=== PATIENT | female | born 1980 | race Two or more races ===

== ENCOUNTER → 2018-04-15 11:24 | Outpatient (CLI) | payer OTHER, SELFPAY ==
[2018-04-18 09:33] LABS: HPV Reflexed? NOT INDICATED
== END ==
PROVIDERS: Visit Provider Obstetrics & Gynecology
DX: Z12.4 Encounter for screening for malignant neoplasm of cervix (principal)
CPT/HCPCS: 88175; G0145

== ENCOUNTER → 2018-04-16 13:35 | Outpatient (CLI) | payer OTHER, SELFPAY ==
--- NOTE | 2018-04-16 13:45 | RAD_ITS ---
STUDY: HYSTEROSALPINGOGRAM. REASON FOR EXAM: Female, 37 years old. Infertility. 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 Imaging was provided. COMPARISON: None. FINDINGS: The uterus is unremarkable. The fallopian tubes are patent bilaterally with free spill. RAD/Salpingogram IMPRESSION: Normal hysterosalpingogram. Electronically Signed: Ramón Xiong MD at 14:45 EDT Tel [phone], Service support ,
--- NOTE | 2018-04-16 14:21 | PCM.OP.BLANK ---
Operative Report Date of Procedure: 04/16/18 - HSG 37 yo G0 female with 2 yr h/o infertility for hysterosalpingogram. Relates took 1000 mg Ibuprofen prior to procedure. Pt to dorsal supine position with knees bent on X ray table. Speculum inserted and cervix brought into view. Cervix cleansed with Betadine. Os finder used to probe cervix, but unable to pass internal os. Single toothed tenaculum applied to anterior lip of cervix and os finder then used to probe cervix. Os finder inserted to fundus. HSG catheter then inserted through cervix and balloon inflated. Tenaculum removed from cervix and excellent hemostasis noted. Patient kept covered. Dr. Xiong in to room. Contrast inserted into the uterus and uterine cavity filled. Bilateral fallopian tubes imaged and spill noted from distal end of each tube. Images collected during procedure. Procedure concluded. Balloon deflated and HSG catheter removed. Graves speculum removed. Pt returned to dorsal supine position after tolerating procedure well.
== END ==
PROVIDERS: Family Provider Family Medicine; PCP Family Medicine; Visit Provider Obstetrics & Gynecology
DX: Z31.41 Encounter for fertility testing (principal)
CPT/HCPCS: 58340; 74740

== ENCOUNTER → 2018-07-15 08:39 | Outpatient (CLI) | payer OTHER, SELFPAY ==
[2018-07-16 08:27] LABS: Progesterone Level 12.09 ng/mL (See Comment)
== END ==
PROVIDERS: Visit Provider Obstetrics & Gynecology
DX: N97.0 Female infertility associated with anovulation (principal); Z51.81 Encounter for therapeutic drug level monitoring
CPT/HCPCS: 36415; 84144

== ENCOUNTER → 2018-10-27 16:21 | Outpatient (CLI) | payer OTHER, SELFPAY ==
[2018-10-27 17:45] LABS: Progesterone Level 36.78 ng/mL (See Comment)
--- OUTSIDE RECORDS SUMMARY | 2018-12-09 15:48 | XMS RPT_ITS ---
:1980 Author Organization [facility] Care Team Providers Name Role Phone [facility]UPENDRAGULSHANMARY ([facility]) Referring Unavailable JOSUE ARENAS Referring Unavailable LEYT CRUMP Attending Unavailable JOSUE ARENAS Referring Unavailable JOSUE ARENAS Referring Unavailable Flower Brady Attending Unavailable Flower Brady Attending Unavailable Josue Arenas Primary Care Unavailable Flower Brady Attending Unavailable Flower Brady Attending Unavailable PROBLEMS PROBLEMS DATE TYPE CONDITION / CODE ATTENDING STATUS SOURCE 11/05/2018 Active Encounter for NA Active [facility] test, [place] result positive / Repository Z32.01(ICD-10) 11/05/2018 Active Amenorrhea, NA Active [facility] unspecified / [place] N91.2(ICD-10) Repository 07/23/2018 Active Secondary NA Active [facility] amenorrhea / [place] N91.1(ICD-10) Repository 07/23/2018 Active Contact with and NA Active [facility] (suspected) [place] exposure to other Repository viral communicable diseases / Z20.828(ICD-10) 07/23/2018 Active Encounter for NA Active [facility] screening for [place] other viral Repository diseases / Z11.59(ICD-10) 07/17/2018 Active Encounter for NA Active [facility] screening for [place] respiratory Repository tuberculosis / Z11.1(ICD-10) 04/17/2018 Unknown 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, [facility] unspecified / Hospital N97.9(ICD-10) Repository 04/15/2018 Unknown Z12.4 - Encounter Flower Brady Active [facility] for screening for Community malignant neoplasm [facility] cervix / Repository Z12.4(ICD-10) PROCEDURES PROCEDURES No Procedure Records FoundRESULTS RESULTS HCG, QUANTITATIVE BL Collected: 11/05/2018 Status: F Source: [place] 4:36 PM [facility] REPOS[facility] TYPE CODE TESTS RESULT OUT OF REFERENCE UNITS RANGE LAB HCGQT <5.0 mU/mL HCG, High Quantitative Bl 1984.0 Result Comment: QUANTITATIVE HCG NORMAL RANGES Weeks of Gestation (Weeks Since LMP) 3 Weeks (5.8-71.2 mIU/mL) 4 Weeks (9.5-750 mIU/mL) 5 Weeks (217-7138 mIU/mL) 6 Weeks (158-97395 mIU/mL) 7 Weeks (3697-704482 mIU/mL) 8 Weeks (40402-640244 mIU/mL) 9 Weeks (23051-689455 mIU/mL) 10 Weeks (71738-287415 mIU/mL) 12 Weeks (59921-585536 mIU/mL) Referenced to 4th IS of [facility] Performed By: #### HCGQT #### [facility] [address] [place], [place] [address] PROGESTERONE LEVEL Collected: 10/27/2018 Status: F [place] 4[place] [facility] [place] CODE TESTS RESULT OUT OF REFERENCE UNITS RANGE LAB L509.4001 See Comment ng/mL Progesterone Normal 36.78 Result Comment: Progesterone Reference Table: UNITS Female: Follicular 0.15 - 1.40 ng/mL Luteal 3.34 - 25.56 ng/mL Mid-luteal 4.44 - 28.03 ng/mL Postmenopausal 0.0 - 0.73 ng/mL : 1st Trimester 11.22 - 90.00 ng/mL 2nd Trimester 25.55 - 89.40 ng/mL 3rd Trimester 48.40 -422.50 ng/mL Performed By: #### L509.4001 #### [facility] [address] [place], [address] CNPN Observed: 09/16/2018 Status: COMPLETED Source: [place] 12:00 AM [facility] REPOSITORY Telephone (GENSWS) CARSON DE LA CRUZ ([id number]) 1980 F Date Time Provider Department 09/16/18 LETY CRUMP During your visit today, we recorded the following information about you: Radha Connor Ma 09/16/2018 9:21 AM Signed Pt calling to report that the rectal cream that was ordered required prior auth. Her insurance is through [facility]. and policy number is [id number]. She has asked that we let her know once this is addressed and a response is received. [facility]. Radha Norwood CASH APPLICATIONS SPECIALIST 09/16/2018 1:03 PM Signed Attempted to creat PA at [email or web address] however that is [employer] and they do not cover PA of compounded Rx. Was given PH # for [facility] by them [phone] which went to . Left detailed message and was instructed to anticipate phone call back within 24 hrs Radha Estrada RN 09/17/2018 11:07 AM Signed Patient called again today inquiring about prior authorization for compounded RX nifedipine ointment. I spoke with her insurance company through [facility] and faxed the required information to [phone]. I asked that it be urgently addressed however the usual response time according to their office is 10 days. Per [facility] pharmacy the cost of the RX is $45.00. I will check with Dr. Crump to see if there is an alternative to this medication. Radha Estrada RN 09/17/2018 1:33 PM Signed I spoke with the patient and informed her that the records were faxed from our office to the prior authorization office at [facility] to see if her RX might be covered. I also spoke with Dr. Crump to see if there was an alternate medication to order. At this time there is nothing different to order. The patient was informed of this and told what it what cost out of pocket for her script to be filled. She demonstrated an understanding of this. Radha Norwood LPN 09/17/2018 3:38 PM Signed [facility] returned call to office to confirm medication @ dose. Stated they will route to pharmacy team Allergies As of Date: 09/16/2018 (No Known Allergies) Date Reviewed: 09/13/2018 Reviewed by: Lety Crump - Fully Assessed Reason for Visit: Insurance Authorization [[id number]] Prescriptions as of 09/16/2018 Sig: COMPOUNDED PRESCRIPTION NIfedipine 2% with vaseline (* HYDROCORTISONE ACETATE 25 MG * 1 Suppository by RECTAL route* YELLOW FEVER VACCINE LIVE(PF)* Inject sub cut as ordered DILUENT FOR LIVE YELLOW FEVER* Inject once sub cut as ordered ATOVAQUONE-PROGUANIL 250 MG-1* Take 1 tablet by mouth once d* LORATADINE 10 MG TABLET Take 1 tablet by mouth once d* PHENYLEPHRINE 0.25 %-COCOA BU* 1 Suppository by RECTAL route* THERAPEUTIC MULTIVITAMIN TABL* Take 1 tablet by mouth once d* CHOLECALCIFEROL (VITAMIN D3) * Take 1 capsule by mouth once * IBUPROFEN 600 MG TABLET Take 1 tablet by mouth every * Problem List As Of Date 09/16/2018 Noted Resolved Hyperthyroidism [E05.90] INVALID FOR* Thyroid activity decreased [E03.9] INVALID FOR* Vitamin D deficiency [E55.9] INVALID FOR* Encounter Status:Closed by RADHA ESTRADA RN on 09/17/18 PROGRESS Observed: 09/10/2018 Status: COMPLETED Source: [place] 7:24 PM [facility] [place] REPOSITORY HNO ID: [id number] Author: Lety Crump Service: (none) Author Type: Physician Type: Progress Notes Filed: 09/13/2018 5:25 PM Note Text: Carson De La Cruz 1980 REFERRING PHYSICIAN: Josue Arenas MD CHIEF COMPLAINT: Consult (Consult Hemorrhoids) HPI: The patient is a 37 year old female presents with complaint of perianal pain. Last year, states that she had perianal pain, no bleeding, resolved with use of suppositories. Presently, has had burning/itching/pain/bleeding for the past 4 weeks. Noted hard stools in the past 3-4 days. Has also complaint of abdominal bloating. Complains of pain noted mostly at night. Has tried suppositories to no improvement Had colonoscopy about 5-6 years ago, along with EGD in [place], no findings noted. No colon cancer noted in immediate family. Notes blood in stools. PAST MEDICAL HISTORY Diagnosis Date - Fasciitis - Thyroiditis PAST SURGICAL HISTORY Procedure Laterality Date - NONE Current Outpatient Prescriptions: COMPOUNDED PRESCRIPTION NIfedipine 2% with vaseline (60 grams) 2 refills, apply to affected area prior to bowel movements and every evening prior to bedtime hydrocortisone (ANUSOL-HC) 25 mg suppository 1 Suppository by RECTAL route twice daily as needed (hemorrhoids/rectal pain). Yellow Fever Vaccine, PF, 10 exp4.74 unit/0.5 mL injection Inject sub cut as ordered diluent,yeclinton fev vac,0.4%NaCl 0.4 % syrg Inject once sub cut as ordered atovaquone-proguanil (MALARONE) 250-100 mg per tablet Take 1 tablet by mouth once daily. Start 2 days prior to travel, continue for one week following return loratadine (CLARITIN) 10 mg tablet Take 1 tablet by mouth once daily. phenylephrine-cocoa butter (PREPARATION H,PE,CB,) 0.25-88.44 % supp 1 Suppository by RECTAL route once daily for 7 days. therapeutic multivitamin (THERA VITAMIN) tablet Take 1 tablet by mouth once daily. cholecalciferol, Vitamin D3, (VITAMIN D3) 50,000 unit cap capsule Take 1 capsule by mouth once each week. ibuprofen (MOTRIN) 600 mg tablet Take 1 tablet by mouth every 6 hours as needed for Pain. ALLERGIES: Patient has no known allergies. PERSONAL HISTORY: Social History Marital status: Single Social History Main Topics Smoking status: Never Smoker Smokeless tobacco: Never Used Alcohol use: No Drug use: No FAMILY HISTORY Problem Relation Age of Onset - Hypertension Father - Lipids Father - Diabetes Father - Diabetes Mother REVIEW OF SYSTEMS: General - denies fevers Cardiovascular - denies chest pain Pulmonary - denies shortness of breath Gastrointestinal - see HPI Neurological - denies seizures Genitourinary - denies blood in urine Hematological - denies spontaneous/prolonged bleeding Skin - denies nonhealing skin wounds Endocrine - denies diabetes Psychological ? denies hallucinations PHYSICAL EXAMINATION: General: The patient is 37 year old female, well nourished, well hydrated in no acute distress. The patient is oriented to time, place, and person. VITALS: Wt: 168# Head ? Normocephalic. EOM intact with sclera clear and no icterus noted. Mouth with mucus membranes moist. Neck - supple with no jugular venous distention noted. Trachea is midline. Lungs ? clear to auscultation. Normal breath sounds No rales/rhonchi/wheezing noted. No labored breathing noted, such as retractions. . Heart ? normal S1 and S2 auscultated. No rubs/clicks/murmurs noted. Regular rate. Abdomen ? soft and benign. Normal bowel sounds Extremities ? no calf tenderness noted. Rectal ? normal perianal skin, minimal external hemorrhoids, grade 2 internal hemorrhoids noted, posterior anal fissure with sentinel tag noted Skin ? normal skin integrity. Neurological ? gait normal, no focal deficits noted Psych ? calm and appropriate, Assessment IMPRESSION: anal fissure, hemorrhoids PLAN: I have discussed the above with the patient. I have explained that she has anal fissure and hemorrhoidal disease - I have given her a patient handout. I have recommended nifedipine cream and explained to her its use and rationale. Alternative treatment is surgical but there is risk of incontinence. I have also rec'd use of mineral oil to allow for ease of passing bowel movements while fissure is healing The patient is concerned about the rectal bleeding. I have reassured her that the rectal bleeding is probably from hemorrhoids. She still comments about the rectal bleeding. Therefore, I have offered colonoscopy for further evaluation. She declines this. Follow up with me in a month. I have answered all questions to the patient?s satisfaction and the patient has no further questions. Greater than 50% of this patient encounter was dedicated to face to face discussion with the patient. Diagnoses: (K60.2) Anal fissure (primary encounter diagnosis) (K64.1) Grade II hemorrhoids Return to Clinic: The patient is instructed to follow-up with me in one month. Lety Crump MD CNOV Observed: 09/10/2018 Status: COMPLETED Source: [place] 3:20 PM [facility] Office Visit (GENSWS) CARSON DE LA CRUZ ([id number]) 1980 F Date Time Provider Department 09/10/18 3:20 PM LETY CRUMP During your visit today, we recorded the following information about you: Lety Crump MD 09/10/2018 3:58 PM Signed Patient education: Anal fissure (The Basics) Written by the doctors and editors at [facility] What is an anal fissure?An anal fissure is a tear in the lining of the anus, the opening where your bowel movements come out (figure 1). Anal fissures cause pain, especially during a bowel movement. There is a muscle that wraps around the anus and holds it shut. It is called the anal sphincter. The sphincter gets tense when the anus is injured. In people with anal fissures, the sphincter goes into spasms, which can lead to further injury. What causes anal fissures?An anal fissure is most often caused by having a hard, dry bowel movement. What are the symptoms of an anal fissure?Most people who have an anal fissure feel a tearing, ripping, or burning pain when they have a bowel movement. This pain can last for hours. Some people also bleed slightly when they have a bowel movement. They might see bright red blood on the toilet paper or on the surface of the bowel movement. Some people with an anal fissure also have itching or irritation around the anus. Should I see my doctor or nurse?Yes. See your doctor or nurse if you bleed when you have a bowel movement. Are there tests I should have?Your doctor or nurse can check whether you have anal fissure by gently spreading your buttocks apart and looking at your anus. If you have had bleeding, your doctor or nurse might send you for a test called a sigmoidoscopy or a similar test called a colonoscopy (figure 2). For these tests, the doctor puts a thin tube into your anus and up into your colon. The tube has a camera attached to it, so the doctor can look inside your colon and check for causes of bleeding. The doctor will usually wait until your anal fissure has healed before doing the test. What can I do on my own to help an anal fissure?You can: ?Eat more fiber ? Eating more fiber can help keep your bowel movements soft. Fiber is found in most fruits, vegetables, and whole grains (figure 3). Doctors suggest eating 20 to 35 grams of fiber a day. The nutrition label on packaged foods can show you much fiber you are getting in each serving (figure 4). ?Take a stool softener ? Stool softeners are medicines that help make your bowel movements easier to pass. You can buy them without a prescription. One stool softener that is often used is called docusate (sample brand name: Colace). ?Soak your buttocks in a sitz bath ? Soaking your buttocks in 2 or 3 inches of warm water is called taking a sitz bath. Do this 2 to 3 times a day for 10 to 15 minutes. Do not add soap, bubble bath, or anything else to the water. Sitz baths help relieve pain and relax the sphincter. How are anal fissures treated?Treatment for anal fissures involves steps that are similar to the things you can do on your own. For the first month of treatment, doctors recommend that people: ?Take fiber supplements, such as: -Psyllium (sample brand name: Metamucil) -Methylcellulose (sample brand name: Citrucel) -Calcium polycarbophil (sample brand name: FiberCon) -Wheat dextran (sample brand name: Benefiber) ?Take a stool softener, such as docusate (sample brand name: Colace). ?Use nitroglycerin or nifedipine cream, prescription medicines that relax the anal sphincter muscle and help the fissure heal. ?Take sitz baths (see above). If these steps to do not work, doctors can try other treatments, such as: ?Botulinum toxin (BoTox) ? This is a shot that can help the anal sphincter muscle relax and heal. It can help, but it can also cause short-term problems with leaking of gas or bowel movements. ?Surgery ? During surgery, the doctor makes a small cut in the sphincter to help it relax. This surgery works in most patients, but doctors offer it only to people who do not get better with other treatments. Surgery can cause lasting problems with leaking of gas or bowel movements. eLty Crump MD 09/13/2018 5:25 PM Signed Carson De La Cruz 1980 REFERRING PHYSICIAN: Josue Arenas MD CHIEF COMPLAINT: Consult (Consult Hemorrhoids) HPI: The patient is a 37 year old female presents with complaint of perianal pain. Last year, states that she had perianal pain, no bleeding, resolved with use of suppositories. Presently, has had burning/itching/pain/bleeding for the past 4 weeks. Noted hard stools in the past 3-4 days. Has also complaint of abdominal bloating. Complains of pain noted mostly at night. Has tried suppositories to no improvement Had colonoscopy about 5-6 years ago, along with EGD in [facility], no findings noted. No colon cancer noted in immediate family. Notes blood in stools. PAST MEDICAL HISTORY Diagnosis Date - Fasciitis - Thyroiditis PAST SURGICAL HISTORY Procedure Laterality Date - NONE Current Outpatient Prescriptions: COMPOUNDED PRESCRIPTION NIfedipine 2% with vaseline (60 grams) 2 refills, apply to affected area prior to bowel movements and every evening prior to bedtime hydrocortisone (ANUSOL-HC) 25 mg suppository 1 Suppository by RECTAL route twice daily as needed (hemorrhoids/rectal pain). Yellow Fever Vaccine, PF, 10 exp4.74 unit/0.5 mL injection Inject sub cut as ordered diluent,deandra huggins vac,0.4%NaCl 0.4 % syrg Inject once sub cut as ordered atovaquone-proguanil (MALARONE) 250-100 mg per tablet Take 1 tablet by mouth once daily. Start 2 days prior to travel, continue for one week following return loratadine (CLARITIN) 10 mg tablet Take 1 tablet by mouth once daily. phenylephrine-cocoa butter (PREPARATION H,PE,CB,) 0.25-88.44 % supp 1 Suppository by RECTAL route once daily for 7 days. therapeutic multivitamin (THERA VITAMIN) tablet Take 1 tablet by mouth once daily. cholecalciferol, Vitamin D3, (VITAMIN D3) 50,000 unit cap capsule Take 1 capsule by mouth once each week. ibuprofen (MOTRIN) 600 mg tablet Take 1 tablet by mouth every 6 hours as needed for Pain. ALLERGIES: Patient has no known allergies. PERSONAL HISTORY: Social History Marital status: Single Social History Main Topics Smoking status: Never Smoker Smokeless tobacco: Never Used Alcohol use: No Drug use: No FAMILY HISTORY Problem Relation Age of Onset - Hypertension Father - Lipids Father - Diabetes Father - Diabetes Mother REVIEW OF SYSTEMS: General - denies fevers Cardiovascular - denies chest pain Pulmonary - denies shortness of breath Gastrointestinal - see HPI Neurological - denies seizures Genitourinary - denies blood in urine Hematological - denies spontaneous/prolonged bleeding Skin - denies nonhealing skin wounds Endocrine - denies diabetes Psychological ? denies hallucinations PHYSICAL EXAMINATION: General: The patient is 37 year old female, well nourished, well hydrated in no acute distress. The patient is oriented to time, place, and person. VITALS: Wt: 168# Head ? Normocephalic. EOM intact with sclera clear and no icterus noted. Mouth with mucus membranes moist. Neck - supple with no jugular venous distention noted. Trachea is midline. Lungs ? clear to auscultation. Normal breath sounds No rales/rhonchi/wheezing noted. No labored breathing noted, such as retractions. . Heart ? normal S1 and S2 auscultated. No rubs/clicks/murmurs noted. Regular rate. Abdomen ? soft and benign. Normal bowel sounds Extremities ? no calf tenderness noted. Rectal ? normal perianal skin, minimal external hemorrhoids, grade 2 internal hemorrhoids noted, posterior anal fissure with sentinel tag noted Skin ? normal skin integrity. Neurological ? gait normal, no focal deficits noted Psych ? calm and appropriate, Assessment IMPRESSION: anal fissure, hemorrhoids PLAN: I have discussed the above with the patient. I have explained that she has anal fissure and hemorrhoidal disease - I have given her a patient handout. I have recommended nifedipine cream and explained to her its use and rationale. Alternative treatment is surgical but there is risk of incontinence. I have also rec'd use of mineral oil to allow for ease of passing bowel movements while fissure is healing The patient is concerned about the rectal bleeding. I have reassured her that the rectal bleeding is probably from hemorrhoids. She still comments about the rectal bleeding. Therefore, I have offered colonoscopy for further evaluation. She declines this. Follow up with me in a month. I have answered all questions to the patient?s satisfaction and the patient has no further questions. Greater than 50% of this patient encounter was dedicated to face to face discussion with the patient. Diagnoses: (K60.2) Anal fissure (primary encounter diagnosis) (K64.1) Grade II hemorrhoids Return to Clinic: The patient is instructed to follow-up with me in one month. Lety Crump MD Referring Provider: JOSUE ARENAS [[id number]] Allergies As of Date: 09/10/2018 (No Known Allergies) Date Reviewed: 09/10/2018 Reviewed by: Jaleel Norwood LPN - Fully Assessed Reason for Visit: Consult [[id number]] Cmt: Consult Hemorrhoids Primary Visit Diagnosis:Anal fissure [K60.2] Other Visit Diagnosis:Grade II hemorrhoids [K64.1] Order(s):COMPOUNDED PRESCRIPTIONNIfedipine 2% with vaseline (60 grams) 2 refills, apply to affected area prior to bowel movements and every evening prior to bedtimeDisp: 60 gRfl: 2 Prescriptions as of 09/10/2018 Sig: COMPOUNDED PRESCRIPTION NIfedipine 2% with vaseline (* HYDROCORTISONE ACETATE 25 MG * 1 Suppository by RECTAL route* YELLOW FEVER VACCINE LIVE(PF)* Inject sub cut as ordered DILUENT FOR LIVE YELLOW FEVER* Inject once sub cut as ordered ATOVAQUONE-PROGUANIL 250 MG-1* Take 1 tablet by mouth once d* LORATADINE 10 MG TABLET Take 1 tablet by mouth once d* PHENYLEPHRINE 0.25 %-COCOA BU* 1 Suppository by RECTAL route* THERAPEUTIC MULTIVITAMIN TABL* Take 1 tablet by mouth once d* CHOLECALCIFEROL (VITAMIN D3) * Take 1 capsule by mouth once * IBUPROFEN 600 MG TABLET Take 1 tablet by mouth every * Medication notes this encounter YELLOW FEVER VACCINE LIVE(PF) 10 EXP4.74 UNIT/0.5 ML SUBCUTANEOUS SUSP >> Jaleel Norwood LPN 09/10/2018 3:14 PM >> ENMA JALEEL JOY SatSep 10, 2018 3:14 PM Please D/c DILUENT FOR LIVE YELLOW FEVER VACCINE (0.4% SODIUM CHLORIDE) SYRINGE >> Jaleel Norwood LPN 09/10/2018 3:14 PM >> JALEEL NORWOOD LPN SatSep 10, 2018 3:14 PM Please D/C ATOVAQUONE-PROGUANIL 250 MG-100 MG TABLET >> Jaleel Norwood LPN 09/10/2018 3:14 PM >> JALEEL NORWOOD LPN SatSep 10, 2018 3:14 PM Please d/c Problem List As Of Date 09/10/2018 Noted Resolved Hyperthyroidism [E05.90] INVALID FOR* Thyroid activity decreased [E03.9] INVALID FOR* Vitamin D deficiency [E55.9] INVALID FOR* Other instructions from your clinician: Patient education: Anal fissure (The Basics) Written by the doctors and editors at [facility] What is an anal fissure?An anal fissure is a tear in the lining of the anus, the opening where your bowel movements come out (figure 1). Anal fissures cause pain, especially during a bowel movement. There is a muscle that wraps around the anus and holds it shut. It is called the anal sphincter. The sphincter gets tense when the anus is injured. In people with anal fissures, the sphincter goes into spasms, which can lead to further injury. What causes anal fissures?An anal fissure is most often caused by having a hard, dry bowel movement. What are the symptoms of an anal fissure?Most people who have an anal fissure feel a tearing, ripping, or burning pain when they have a bowel movement. This pain can last for hours. Some people also bleed slightly when they have a bowel movement. They might see bright red blood on the toilet paper or on the surface of the bowel movement. Some people with an anal fissure also have itching or irritation around the anus. Should I see my doctor or nurse?Yes. See your doctor or nurse if you bleed when you have a bowel movement. Are there tests I should have?Your doctor or nurse can check whether you have anal fissure by gently spreading your buttocks apart and looking at your anus. If you have had bleeding, your doctor or nurse might send you for a test called a sigmoidoscopy or a similar test called a colonoscopy (figure 2). For these tests, the doctor puts a thin tube into your anus and up into your colon. The tube has a camera attached to it, so the doctor can look inside your colon and check for causes of bleeding. The doctor will usually wait until your anal fissure has healed before doing the test. What can I do on my own to help an anal fissure?You can: ?Eat more fiber ? Eating more fiber can help keep your bowel movements soft. Fiber is found in most fruits, vegetables, and whole grains (figure 3). Doctors suggest eating 20 to 35 grams of fiber a day. The nutrition label on packaged foods can show you much fiber you are getting in each serving (figure 4). ?Take a stool softener ? Stool softeners are medicines that help make your bowel movements easier to pass. You can buy them without a prescription. One stool softener that is often used is called docusate (sample brand name: Colace). ?Soak your buttocks in a sitz bath ? Soaking your buttocks in 2 or 3 inches of warm water is called taking a sitz bath. Do this 2 to 3 times a day for 10 to 15 minutes. Do not add soap, bubble bath, or anything else to the water. Sitz baths help relieve pain and relax the sphincter. How are anal fissures treated?Treatment for anal fissures involves steps that are similar to the things you can do on your own. For the first month of treatment, doctors recommend that people: ?Take fiber supplements, such as: -Psyllium (sample brand name: Metamucil) -Methylcellulose (sample brand name: Citrucel) -Calcium polycarbophil (sample brand name: FiberCon) -Wheat dextran (sample brand name: Benefiber) ?Take a stool softener, such as docusate (sample brand name: Colace). ?Use nitroglycerin or nifedipine cream, prescription medicines that relax the anal sphincter muscle and help the fissure heal. ?Take sitz baths (see above). If these steps to do not work, doctors can try other treatments, such as: ?Botulinum toxin (BoTox) ? This is a shot that can help the anal sphincter muscle relax and heal. It can help, but it can also cause short-term problems with leaking of gas or bowel movements. ?Surgery ? During surgery, the doctor makes a small cut in the sphincter to help it relax. This surgery works in most patients, but doctors offer it only to people who do not get better with other treatments. Surgery can cause lasting problems with leaking of gas or bowel movements. Prescriptions ordered this encounter Disp Refills Start End COMPOUNDED PRESCRIPTION 60 g 2 09/10/2018 Sig: NIfedipine 2% with vaseline (60 grams) 2 refills, apply to affected area prior to bowel movements and every evening prior to bedtime Encounter Status:Closed by MD LETY CRUMP on 09/13/18 [facility]: 09/05/2018 Status: COMPLETED Source: [place] 12:00 AM [facility] Telephone ([facility]) CARSON DE LA CRUZ ([id number]) 1980 F Date Time Provider Department 09/05/18 [facility] During your visit today, we recorded the following information about you: Monika Steven, RN, RN 09/05/2018 1:38 PM Signed Pt calls regarding hemorrhoid f/u. See TE from 08/25. Pt states she continues to have blood when wiping, slightly increased from prior. Pt states she has finished the suppositories. Pt reports continuing warm baths. Pt states she continues to have pain during bowel movements, but not at any other time. Pt asking if there is anything else she can try. Please advise on work phone number. Pt aware may need appt. Josue Arenas MD 09/05/2018 2:21 PM Signed I would recommend Gen Surg evaluation, since not improved with the suppositories MD Kar Johnston RN 09/09/2018 9:12 AM Signed Patient phoned in and given provider's message below with verbalized understanding. Transferred to psr. Mia Manriquezr Anjel 09/10/2018 11:21 AM Signed Patient scheduled. Allergies As of Date: 09/05/2018 (No Known Allergies) Date Reviewed: 04/30/2017 Reviewed by: Mary Li Ma - Fully Assessed Reason for Visit: F/U Hemorrhoids [Other] Reason For Visit History Recorded Primary Visit Diagnosis:External hemorrhoid [K64.4] Order(s):CONSULT TO GENERAL SURGERY [9011] Order #: [id number]: 1 Prescriptions as of 09/05/2018 Sig: HYDROCORTISONE ACETATE 25 MG * 1 Suppository by RECTAL route* YELLOW FEVER VACCINE LIVE(PF)* Inject sub cut as ordered DILUENT FOR LIVE YELLOW FEVER* Inject once sub cut as ordered ATOVAQUONE-PROGUANIL 250 MG-1* Take 1 tablet by mouth once d* LORATADINE 10 MG TABLET Take 1 tablet by mouth once d* PHENYLEPHRINE 0.25 %-COCOA BU* 1 Suppository by RECTAL route* THERAPEUTIC MULTIVITAMIN TABL* Take 1 tablet by mouth once d* CHOLECALCIFEROL (VITAMIN D3) * Take 1 capsule by mouth once * IBUPROFEN 600 MG TABLET Take 1 tablet by mouth every * Problem List As Of Date 09/05/2018 Noted Resolved Hyperthyroidism [E05.90] INVALID FOR* Thyroid activity decreased [E03.9] INVALID FOR* Vitamin D deficiency [E55.9] INVALID FOR* Encounter Status:Closed by Kar RIGGS RN on 09/09/18 [place] Observed: 07/24/2018 Status: COMPLETED Source: [place] 12:00 AM [facility] CARSON DE LA CRUZ ([id number]) 1980 F Date Time Provider Department 07/24/18 MARY HUIZAR (ELOISA) NICOLASA During your visit today, we recorded the following information about you: Mary Huizar APRN.CNP 07/24/2018 8:52 AM Signed Please inform patient that her blood test for shows a possibility of . It is just slightly elevated, so we need to proceed forward as if she is . Instruct her to refrain from all alcohol, ibuprofen containing products. Her chicken pox titer is still in process. She is scheduled for a nurse visit today for Chickenpox vaccine, we should not give her the vaccine and cancel the appointment. We need to repeat the blood work in 1 week to see if her HCG is trending up. I have placed the lab work. If positive, we will refer to OB-THERMOSTAT MAKER for start of care. STEPHAN Isabel Cma 07/24/2018 10:00 AM Signed Called patient , phone rang once then went busy Vanesa Preston RN 07/24/2018 10:12 AM Signed Spoke with patient. Given message from provider's office. Patient verbalizes understanding. She has an appointment with OB today. Still awaiting varicella titer. Carlie Farris Cma 07/24/2018 10:27 AM Signed Noted Vanesa Huizar APRN.CNP 07/24/2018 11:18 AM Signed Please inform patient that varicella titer was positive, no need for immunization. STEPHAN Isabel RN, RN 07/24/2018 3:38 PM Signed Patient notified of results and provider's instructions. Patient verbalizes understanding. Pt request result faxed to [phone] and mailed to her. Address verified. Monika Steven RN Allergies As of Date: 07/24/2018 (No Known Allergies) Date Reviewed: 04/30/2017 Reviewed by: Mary Li Ma - Fully Assessed Reason for Visit: Results [95] Primary Visit Diagnosis:Elevated serum hCG [E34.9] Order(s):HCG QUANTITATIVE [SQHCGQT] Order #: [id number] FUTURE Prescriptions as of 07/24/2018 Sig: YELLOW FEVER VACCINE LIVE(PF)* Inject sub cut as ordered DILUENT FOR LIVE YELLOW FEVER* Inject once sub cut as ordered ATOVAQUONE-PROGUANIL 250 MG-1* Take 1 tablet by mouth once d* LORATADINE 10 MG TABLET Take 1 tablet by mouth once d* PHENYLEPHRINE 0.25 %-COCOA BU* 1 Suppository by RECTAL route* THERAPEUTIC MULTIVITAMIN TABL* Take 1 tablet by mouth once d* CHOLECALCIFEROL (VITAMIN D3) * Take 1 capsule by mouth once * IBUPROFEN 600 MG TABLET Take 1 tablet by mouth every * Problem List As Of Date 07/24/2018 Noted Resolved Hyperthyroidism [E05.90] INVALID FOR* Thyroid activity decreased [E03.9] INVALID FOR* Vitamin D deficiency [E55.9] INVALID FOR* Encounter Status:Closed by VANESA FARRIS CMA on 07/24/18 HCG, QUANTITATIVE BL Collected: 07/23/2018 Status: F Source: [place] 3:23 PM [facility] TYPE CODE TESTS RESULT OUT OF REFERENCE UNITS RANGE LAB HCGQT <5.0 mU/mL HCG, High Quantitative Bl 5.6 Result Comment: HCG values 5 to 16 mU/mL may represent benign, pituitary derived HCG in non- women over 40 years of age. QUANTITATIVE HCG NORMAL RANGES Weeks of Gestation (Weeks Since LMP) 3 Weeks (5.8-71.2 mIU/mL) 4 Weeks (9.5-750 mIU/mL) 5 Weeks (217-7138 mIU/mL) 6 Weeks (158-59864 mIU/mL) 7 Weeks (3697-602994 mIU/mL) 8 Weeks (71332-197327 mIU/mL) 9 Weeks (60402-158682 mIU/mL) 10 Weeks (46645-309862 mIU/mL) 12 Weeks (81710-884136 mIU/mL) Referenced to 4th IS of NIBSC Performed By: #### HCGQT, VZVG2 #### [facility] [address] [place], [place] [address] VARICELLA ZOSTER IGG Collected: 07/23/2018 Status: F Source: [place] 3:23 PM [facility] TYPE CODE TESTS RESULT OUT OF RANGE REFERENCE UNITS LAB VZVGQL Negative Abnormal V. zoster Positive Alert IgG, Qual Result Comment: Presence of detectable VZV IgG antibodies. A positive result generally indicates exposure to the pathogen or administration of specific immunoglobulins, but is no indication of active infection or stage of disease. LAB VZVG Index Value Varicella Zoster IgG 1417.0 Result Comment: Index Values are Interpreted as Follows: Negative specimens <135.0 Equivocal specimens 135.0 to 164.9 Positive specimens >164.9 The magnitude of the measured result is not indicative of the amount of antibody present. Performed By: #### HCGQT, VZVG2 #### [facility] [address] [employer] [place] [address] CNCO Observed: 07/21/2018 Status: COMPLETED Source: [place] 12:00 AM [facility] Letter Text [place] [facility] [address] [place], [place] [address] #: [id number] 07/21/2018 Below is your test results for tuberculosis: Please inform patient that testing for tuberculosis was negative. ? Mary Huizar APRN.CHEF TEACHER ? Documentation Sincerely Your [facility] TB BY QUANTIFERON Collected: 07/17/2018 Status: F Source: [place] 12:49 PM [facility] TYPE CODE TESTS RESULT OUT OF REFERENCE UNITS RANGE LAB TBGRES Negative TB Result Negative LAB TBGUI <0.35 IU/mL TB Antigen 0.00 Response LAB TBGMIT >0.49 IU/mL Mitogen 8.75 Response LAB TBGINT Interpretation No evidence of current or previous infection with Mycobacterium tuberculosis. Performed By: #### INFTBG #### [facility] [address] [place] [address] PROGESTERONE LEVEL Collected: 07/15/2018 Status: F Source: [place] 8:41 AM [facility] TYPE CODE TESTS RESULT OUT OF REFERENCE UNITS RANGE LAB L509.4001 See Comment ng/mL Progesterone Normal 12.09 Result Comment: Progesterone Reference Table: UNITS Female: Follicular 0.15 - 1.40 ng/mL Luteal 3.34 - 25.56 ng/mL Mid-luteal 4.44 - 28.03 ng/mL Postmenopausal 0.0 - 0.73 ng/mL : 1st Trimester 11.22 - 90.00 ng/mL 2nd Trimester 25.55 - 89.40 ng/mL 3rd Trimester 48.40 -422.50 ng/mL Performed By: #### L509.4001 #### [facility] [address] [place], [address] OPERATIVE REPORT Observed: 04/17/2018 Status: F Source: [place] 7:08 AM [facility] Medical Records Department [address] [place] [address] Operative Report 04/16/18 1421 MR#: [id number] Acct: [id number] Name: CARSON DE LA CRUZ Rep #: [id number] : 1980 37 From: Flower Brady MD PCP: Doroteo BENITES,Josue Status: REG CLI Y Location: RAD Operative Report Date of Procedure: 04/16/18 - HSG 37 yo G0 female with 2 yr h/o infertility for hysterosalpingogram. Relates took 1000 mg Ibuprofen prior to procedure. Pt to dorsal supine position with knees bent on X ray table. Speculum inserted and cervix brought into view. Cervix cleansed with Betadine. Os finder used to probe cervix, but unable to pass internal os. Single toothed tenaculum applied to anterior lip of cervix and os finder then used to probe cervix. Os finder inserted to fundus. HSG catheter then inserted through cervix and balloon inflated. Tenaculum removed from cervix and excellent hemostasis noted. Patient kept covered. Dr. Xiong in to room. Contrast inserted into the uterus and uterine cavity filled. Bilateral fallopian tubes imaged and spill noted from distal end of each tube. Images collected during procedure. Procedure concluded. Balloon deflated and HSG catheter removed. Graves speculum removed. Pt returned to dorsal supine position after tolerating procedure well. 04/17/18 0708 <Electronically signed by Flower Brady MD> Date Flower Brady MD CC: Flower Brady MD; Josue Arenas MD Signed SALPINGOGRAM Observed: 04/16/2018 Status: F Source: [place] 1:45 PM [facility] Imaging Services [address] [address] Salpingogram MR#: [id number] Acct: [id number] Name: CARSON DE LA CRUZ Rep #: [id number] : 1980 F 37 From: Ramón Xiong MD PCP: Josue Arenas MD Status: REG CLI Study: Salpingogram Date of Exam: 04/16/18 Exam# [id number] Ordering Dr: Flower Brady MD STUDY: HYSTEROSALPINGOGRAM. REASON FOR EXAM: Female, 37 years old. Infertility. FLUOROSCOPY TIME (if supplied): (0:32) minutes/seconds TECHNIQUE: A hysterosalpingogram was performed by the medical laboratory technical officer. Imaging was provided. COMPARISON: None. FINDINGS: The uterus is unremarkable. The fallopian tubes are patent bilaterally with free spill. RAD/Salpingogram IMPRESSION: Normal hysterosalpingogram. Electronically Signed: Ramón Xiong MD at 14:45 EDT Tel [phone], Service support , CC: Flower Brady MD; Josue Arenas MD Dish Stacker: Signed PAP I-G W/RFX HRHPV Collected: 04/15/2018 Status: F Source: [place] 9:00 AM [facility] Order Comment: CYTOLOGY INFORMATION: - CLINICAL INFORMATION: - DATE LMP/MENOPAUSE: 04/09/18 LMP - COLLECTION VIAL: Thin Prep Vial - THERMOSTAT MAKER SOURCE: CERVICAL/ENDOCERVICAL - COLLECTION TECHNIQUE: BRUSH/SPATULA Specimen Comment: [id number] Specimen Comment: No. of containers..01 ThinPrep Vial TYPE CODE TESTS RESULT OUT OF RANGE REFERENCE UNITS LAB L7400.0800 . Normal DIAGN Comment Result Comment: NEGATIVE FOR INTRAEPITHELIAL LESION AND MALIGNANCY. LAB L7400.0900 . Normal ADEQ Comment Result Comment: Satisfactory for evaluation. Endocervical and/or squamous metaplastic cells (endocervical component) are present. LAB L7400.1400 . Normal PERFORM Comment Result Comment: Carolyn Zelaya, Promotions Representative (ASCP) LAB L7400.2575 . Normal TEST METHOD Comment Result Comment: This liquid based ThinPrep(R) pap test was screened with the use of an image guided system. LAB L7400.2600 . Normal . COMM LAB L7400.2700 . Normal PAPSMR Comment Result Comment: The Pap smear is a screening test designed to aid in the detection of premalignant and malignant conditions of the uterine cervix. It is not a diagnostic procedure and should not be used as the sole means of detecting cervical cancer. Both false-positive and false-negative reports do occur. LAB L7400.2800 . Normal HPV RFLX Comment Result Comment: The HPV DNA reflex criteria were not met with this specimen result therefore, no HPV testing was performed. Performed at: - [facility] [id number] Cable Installation Technician: Debra Velarde MD, Phone: [phone] Performed By: #### L7400.0350 #### [facility] (refer to report for specific site) refer to report for address and phone number ALLERGIES ALLERGIES DATE TYPE / CODE NAME / CODE REACTION SEVERITY SOURCE Drug NO KNOWN [facility] Class/85811 ALLERGIES Main Tye 1003(SNOMED Repository CT) ENCOUNTERS ENCOUNTERS ADMIT/DISCHARGE ACCOUNT ADMITTING ENCOUNTER LOCATION SOURCE NUMBER CLASS 11/05/2018/11/05/20 [id number] Ambulatory [address] Repository 10/27/2018 [id number] [facility] ing:WOBLAB Repository 09/10/2018/09/14/20 [id number] Ambulatory [address] Repository 07/23/2018/09/19/20 [id number] Ambulatory [address] Repository 07/17/2018 [id number] Ambulatory [facility] Repository 07/15/2018 [id number] [facility] ing:WOBLAB Repository 04/16/2018 [id number] Ambulatory [facility] ing:RAD Repository 04/15/2018 [id number] [facility] ing:LABSPEC Repository PAYERS PAYERS ENCOUNTER GUARANTOR PAYER SUBSCRIBER SOURCE 10/27/2018 YOSRA H Primary YOSRA H Zo [id number] Insurance:CORESOURCEP MOHAMEDDOB: [facility] [place]: [id number] [id number] Repository [address]All: . (HP) Date:9324-37-10FQ [address] [place] [address]XJ: 10/27/2018 Secondary NOT GIVENUNK Zo Insurance:SELF PAY [facility] Number: Effective Repository Date:2018-10-27 07/15/2018 YOSRA H Primary YOSRA H [place] [id number] Insurance:CORESOURCEP MOHAMEDDOB: [facility] Number: [id number] [id number] Repository [address]Pcv: . (HP) Date:3952-51-37[address] PET[address] DIAZ [address]SM: 07/15/2018 Secondary NOT GIVENUNK Zo Insurance:SELF PAY [facility] Number: Effective Repository Date:2018-07-15 04/16/2018 YOSRA H Primary YOSRA H Zo [id number] Insurance:CORESOURCEP MOHAMEDDOB: [facility] Number: [id number] [id number] Repository [address]Oyi: . (HP) Date:4664-97-33JH [address] [address]FA: 04/16/2018 Secondary NOT GIVENUNK [place] Insurance:SELF PAY [facility] Number: Effective Repository Date:2018-04-15 04/15/2018 Yosra Primary YOSRA [place] [id number] Insurance:CORESOURCEP MOHAMEDDOB: [facility] Number: [id number] [place], [place] [id number] Repository [address]Ayw: . (HP) Date:3868-42-25[address] PET[address] DIAZ [address]UU: 04/15/2018 Secondary NOT GIVENUNK [place] Insurance:SELF PAY [facility] Number: Effective Repository Date:2018-04-15
== END ==
PROVIDERS: Visit Provider Obstetrics & Gynecology
DX: N97.0 Female infertility associated with anovulation (principal); Z51.81 Encounter for therapeutic drug level monitoring; Z79.899 Other long term (current) drug therapy
CPT/HCPCS: 36415; 84144

== ENCOUNTER → 2018-12-16 18:10 | Outpatient (CLI) | payer OTHER, SELFPAY ==
[2018-12-16 21:40] LABS: Chlamydia Trachomatis by PCR Negative (Negative); Neisserai gonorrhoeae by PCR Negative (Negative); Probe Check PASS; Sample Adequacy Control PASS; Specimen Processing Control PASS
== END ==
PROVIDERS: Referring Provider Obstetrics & Gynecology; Visit Provider Obstetrics & Gynecology
DX: Z34.81 Encounter for supervision of other normal pregnancy, first trimester (principal); Z11.3 Encounter for screening for infections with a predominantly sexual mode of transmission
CPT/HCPCS: 87491; 87591

== ENCOUNTER 2019-05-21 16:15 | Outpatient (CLI) | payer OTHER, SELFPAY ==
[2019-05-21 16:50] VITALS: BMI 31.8
[2019-05-21 17:19] LABS: Fetal Fibronectin Negative
[2019-05-21 17:38] LABS: Absolute Lymphocyte Count 2.16 X10^3/ul (0.83-4.51); Absolute Neutrophil Count 7.7 X10^3/uL (2.0-7.7); Basophil# 0.02 X10^3/uL; Basophil% 0.2 % (0-1); Eosinophil# 0.05 X10^3/uL; Eosinophils% 0.5 % (0-5); Hematocrit 37.5 % (37-47); Hemoglobin 12.5 g/dl (12.0-15.0); Lymphocyte # 2.16 X10^3/ul (4.0); Lymphocyte % 20.5 % (19-41); Mean Corp Hgb Conc 33.3 g/gl (32-36); Mean Corpuscular Hgb 29.7 pg (27.0-32.0); Mean Corpuscular Volume 89.1 fL (81-99); Mean Platelet Vol. 11.8 fl (6.2-12.0); Monocyte# 0.56 X10^3/uL; Monocyte% 5.3 % (0-10); Neutrophil % 72.9 % (47-70); Platelet Count 241 K/mm3 (150-450); RBC Distribution Width CV 14.3 % (11.6-14.6); RBC Distribution Width SD 46.2 fl (35.1-43.9); Red Blood Count 4.21 M/mm3 (4.2-5.4); White Blood Count 10.6 K/mm3 (4.4-11.0)
[2019-05-21 17:38] LABS: Color, Urine Yellow (Yellow); Glucose, Dipstick Normal (Normal); Ketone-Dipstick Negative (Negative); Leukocyte Esterase-Dipstick 100 /ul (Negative); Nitrite-Dipstick Negative (Negative); Occult Blood-Urine Negative /ul (Negative); Protein-Dipstick Negative (Negative); Specific Gravity, Urine 1.005 (1.002-1.030); Urine Bilirubin Dipstick Negative (Negative); Urine Clarity Sl. Cloudy (Clear); Urine Urobilinogen Normal (Normal)
[2019-05-21 17:40] LABS: POSITIVE COUNT NO; POSITIVE DIFFERENTIAL NO; POSITIVE MORPHOLOGY NO
[2019-05-21] MEDS: 0.9% Normal Saline 1,000 ML 200 ML IV (17:42)
[2019-05-21 17:55] LABS: AST(SGOT) 24 U/L (15-37); Alanine Aminotransfer ALT/SGPT 19 U/L (13-56); Albumin, Serum 2.6 g/dL (3.2-5.0); Alkaline Phosphatase 104 U/L (45-117); Amylase 80 U/L (25-115); Anion Gap 8 (5-15); BUN 10 mg/dL (7-18); BUN/Creat Ratio 16.3 RATIO (10-20); Bilirubin, Direct 0.06 mg/dL (0.00-0.30); Calcium,Total 8.9 mg/dL (8.5-10.1); Chloride 107 mmol/L (98-107); Creatinine, Serum 0.61 mg/dL (0.55-1.02); EST Glomerular Filtration Rate 117 mL/min (>60); Est Glom Filt Rate - Afr Amer 142 mL/min (>60); Globulin 4.8 g/dL (2.2-4.2); Glucose 75 mg/dL (74-106); Lipase 128 U/L (73-393); Potassium 4.1 mmol/L (3.5-5.1); Protein, Total 7.4 g/dL (6.4-8.2); Sodium Level 135 mmol/L (136-145)
--- NOTE | 2019-05-21 21:15 | OB.TRI.NOTE ---
History of Present Illness Was patient seen by the physician?: Yes Reason For Visit: R ABD PAIN Date of Service: 05/21/19 Gestational age: 32 and 5 History of Present Illness: Patient seen in office for abdominal pain & threatened PTL. Allergies No Known Allergies Allergy (Verified 05/21/19 16:49) Laboratory Studies: Laboratory Tests 05/21/19 05/21/19 05/21/19 Range/Units 17:15 17:15 17:00 WBC 10.6 (4.4-11.0) K/mm3 RBC 4.21 (4.2-5.4) M/mm3 Hgb 12.5 (12.0-15.0) g/dl Hct 37.5 (37-47) % MCV 89.1 (81-99) fL MCH 29.7 (27.0-32.0) pg MCHC 33.3 (32-36) g/gl RDW 14.3 (11.6-14.6) % RDW Differential 46.2 H (35.1-43.9) fl Plt Count 241 (150-450) K/mm3 MPV 11.8 (6.2-12.0) fl Immature Gran % (Auto) 0.600 (0.0-0.9) % Neut % (Auto) 72.9 H (47-70) % Lymph % (Auto) 20.5 (19-41) % [place] % (Auto) 5.3 (0-10) % Eos % (Auto) 0.5 (0-5) % Baso % (Auto) 0.2 (0-1) % Absolute Neuts (auto) 7.7 (2.0-7.7) X10^3/uL Absolute Lymphs (auto) 2.16 (0.83-4.51) X10^3/ul Total Counted Not Reportable Sodium 135 L (136-145) mmol/L Potassium 4.1 (3.5-5.1) mmol/L Chloride 107 (98-107) mmol/L Carbon Dioxide 20.0 L (21.0-32.0) mmol/L Anion Gap 8 (5-15) BUN 10 (7-18) mg/dL Creatinine 0.61 (0.55-1.02) mg/dL Estim Creat Clear Calc 110.10 ml/min Est GFR (MDRD) Af Amer 142 (>60) mL/min Est GFR (MDRD) Non-Af 117 (>60) mL/min BUN/Creatinine Ratio 16.3 (10-20) RATIO Glucose 75 (74-106) mg/dL Calcium 8.9 (8.5-10.1) mg/dL Total Bilirubin 0.30 (0.20-1.00) mg/dL Direct Bilirubin 0.06 (0.00-0.30) mg/dL AST 24 (15-37) U/L ALT 19 (13-56) U/L Alkaline Phosphatase 104 (45-117) U/L Total Protein 7.4 (6.4-8.2) g/dL Albumin 2.6 L (3.2-5.0) g/dL Globulin 4.8 H (2.2-4.2) g/dL Amylase 80 (25-115) U/L Lipase 128 (73-393) U/L Urine Color Yellow (Yellow) Urine Clarity Sl. Cloudy (Clear) Urine pH 7.0 (5.0 - 8.0) Ur Specific [place] 1.005 (1.002-1.030) Urine Protein Negative (Negative) mg/dl Urine Glucose (UA) Normal (Normal) mg/dl Urine Ketones Negative (Negative) mg/dl Urine Occult Blood Negative (Negative) /ul Urine Nitrite Negative (Negative) Urine Bilirubin Negative (Negative) mg/dL Urine Urobilinogen Normal (Normal) mg/dl Ur Leukocyte Esterase 100 H (Negative) /ul Fibronectin 05/21/19 Range/Units 15:15 WBC (4.4-11.0) K/mm3 RBC (4.2-5.4) M/mm3 Hgb (12.0-15.0) g/dl Hct (37-47) % MCV (81-99) fL MCH (27.0-32.0) pg MCHC (32-36) g/gl RDW (11.6-14.6) % RDW Differential (35.1-43.9) fl Plt Count (150-450) K/mm3 MPV (6.2-12.0) fl Immature Gran % (Auto) (0.0-0.9) % Neut % (Auto) (47-70) % Lymph % (Auto) (19-41) % [place] % (Auto) (0-10) % Eos % (Auto) (0-5) % Baso % (Auto) (0-1) % Absolute Neuts (auto) (2.0-7.7) X10^3/uL Absolute Lymphs (auto) (0.83-4.51) X10^3/ul Total Counted Sodium (136-145) mmol/L Potassium (3.5-5.1) mmol/L Chloride (98-107) mmol/L Carbon Dioxide (21.0-32.0) mmol/L Anion Gap (5-15) BUN (7-18) mg/dL Creatinine (0.55-1.02) mg/dL Estim Creat Clear Calc ml/min Est GFR (MDRD) Af Amer (>60) mL/min Est GFR (MDRD) Non-Af (>60) mL/min BUN/Creatinine Ratio (10-20) RATIO Glucose (74-106) mg/dL Calcium (8.5-10.1) mg/dL Total Bilirubin (0.20-1.00) mg/dL Direct Bilirubin (0.00-0.30) mg/dL AST (15-37) U/L ALT (13-56) U/L Alkaline Phosphatase (45-117) U/L Total Protein (6.4-8.2) g/dL Albumin (3.2-5.0) g/dL Globulin (2.2-4.2) g/dL Amylase (25-115) U/L Lipase (73-393) U/L Urine Color (Yellow) Urine Clarity (Clear) Urine pH (5.0 - 8.0) Ur Specific [place] (1.002-1.030) Urine Protein (Negative) mg/dl Urine Glucose (UA) (Normal) mg/dl Urine Ketones (Negative) mg/dl Urine Occult Blood (Negative) /ul Urine Nitrite (Negative) Urine Bilirubin (Negative) mg/dL Urine Urobilinogen (Normal) mg/dl Ur Leukocyte Esterase (Negative) /ul Fibronectin Negative Physical Exam Presentation: Cephalic Cervix Dilation (cm): 1.5 Station: -3 Effacement (%): 20 NST - FHR Rate Baby A Baseline: 115 Variability:: Moderate Accelerations:: 15 x 15 Decelerations:: None NST Reactive:: Yes Uterine Activity:: Q3-6 minutes at times then irregulra Impression/Plan 38yo female with threatened PTL & abdominal pain Abdominal pain resolved. Cervix stable from office exam & FFN negative. Patient requests discharge home. Recommend BMZ & patient declines at this time. Pyridium given for bladder spasms. All questions answered. Patient & her agree with plan.
== END 2019-05-21 19:09 | disposition home or self-care (01) ==
LOC: LABSPEC 16:20 → WPOUT 16:21 → WP 16:21
PROVIDERS: Referring Provider Obstetrics & Gynecology; Visit Provider Obstetrics & Gynecology
DX: O60.03 Preterm labor without delivery, third trimester (principal); Z3A.32 32 weeks gestation of pregnancy
CPT/HCPCS: 96360; 36415; 59025; 59050; 80048; 80076; 81002; 82150; 82731; 83690; 85025; 87086; 87088; 99218; J7030; G0378; J0702

== ENCOUNTER 2019-06-29 22:30 | Inpatient (IN) | payer OTHER, SELFPAY ==
[2019-06-29] MEDS: Lactated Ringers 1,000 ML 50 ML IV (23:10)
[2019-06-29 23:37] LABS: Absolute Lymphocyte Count 4.07 X10^3/uL (0.83-4.51); Absolute Neutrophil Count 7.5 X10^3/uL (2.0-7.7); Basophil# 0.04 X10^3/uL; Basophil% 0.3 % (0-1); Eosinophil# 0.06 X10^3/uL; Eosinophils% 0.5 % (0-5); Hematocrit 37.5 % (37-47); Hemoglobin 12.7 g/dL (12.0-15.0); Lymphocyte # 4.07 X10^3/ul (4.0); Lymphocyte % 31.9 % (19-41); Mean Corp Hgb Conc 33.9 g/dL (32-36); Mean Corpuscular Hgb 30.4 pg (27.0-32.0); Mean Corpuscular Volume 89.7 fL (81-99); Monocyte# 1.03 X10^3/uL; Monocyte% 8.1 % (0-10); NRBC Flagged by Analyzer 0 % (0-5); Neutrophil # 7.47 X10^3/uL (2.7-7.7); Neutrophil % 58.4 % (47-70); Platelet Count 226 K/mm3 (150-450); RBC Distribution Width CV 14.7 % (11.6-14.6); RBC Distribution Width SD 47.6 fl (35.1-43.9); Red Blood Count 4.18 M/mm3 (4.2-5.4); White Blood Count 12.8 K/mm3 (4.4-11.0)
[2019-06-30 00:04] VITALS: BMI 33.3
[2019-06-30] MEDS: Lactated Ringers 1,000 ML 50 ML IV ×2 (00:11→04:51)
--- NOTE | 2019-06-30 00:13 | HP.PCM_ITS ---
- Problem List (1) Advanced maternal age (AMA) in Status: Acute History Date of Admission: 06/30/19 Final ALFREDO: 07/11/19 Final ALFREDO Source: LMP Gestational age: 38 Weeks and 3 Days History of this : This is a 38 year-old, G [1], P [0], at 38 weeks gestational age with uterine contractions that started around 1700. Denies vaginal bleeding or leakage of fluid. Good movement. Allergies No Known Allergies Allergy (Verified 05/21/19 16:49) Home Medications: Home Medications Vit No.130/Iron/Folic [ Tablet] 1 ea PO DAILY 05/21/19 Smoking Status: Never smoker Alcohol: None Heart Tracin, moderate variability, accels, no decels, Category 1 TOCO: every 2-5 minutes, lasting 60 seconds, strong Cervix: 6-7cm/80%/-1 station. IBOW History Past Pregnancies: Past Pregnancies Delivery Date Name GA/Weeks Outcome Route Weight Infant Gender Labor Length Anesthesia Delivery Location Provider FOB Labs: GBS negative RPR negative Rubella Immune HBsAG negative HIV negative A positive Expected Infant Delivery Method: Spontaneous Vaginal Review of Systems Constitutional: Denies: Chills, Fever, Weight Change HEENT: Denies: Head Aches, Sinus Congestion, Sinus Drainage Cardiovascular: Denies: Chest Pain, Palpitations Respiratory: Denies: Cough, Shortness of breath at rest, Sputum production Gastrointestinal: Denies: Abdominal Pain, Nausea, Vomiting Genitourinary: Denies: Dysuria Musculoskeletal: Denies: Joint Pain, Joint Tenderness Neurological: Denies: Numbness, Tingling, Focal weakness Psychiatric: Denies: Anxiety, Depression, Homicidal Ideations, Suicidal Ideations Physical Exam General: Alert, Oriented x3, Cooperative HEENT: Atraumatic, Normocephalic Cardiovascular: Regular rate, Regular Rhythm, No murmurs Lungs: Clear to auscultation, Normal air movement, No rhonchi, No wheeze Abdomen: Gravid Extremities:: No edema Neurological: Deep Tendon Reflexes 2+/4 and Symmetrical. Negative for: Clonus COAL BAGGER: Normal external genitalia Estimated gestational size: Appropriate for gestational size Presentation: Cephalic Cervix Dilation (cm): 6 Station: -1 Effacement (%): 80 Assessment/Plan All Active Problems Advanced maternal age (AMA) in (Acute) This is a 38 year-old, G [1], P [0], at 38 weeks gestational age in active labor A:Category 1 FHT P: 1) Admit to L&D. Routine labs. IV 2) Continuous EFM 3) Planning epidural for pain management 4) notified of patient status.
[2019-06-30] MEDS: fentaNYL-bupivacaine (epidural) 100 ML BAG EPIDURAL ×2 (00:51→05:23)
--- NOTE | 2019-06-30 08:11 | PCM.PN.BLA ---
Progress Note Patient seen at bedside. Patient is complete 100% bulging membranes. Patient is on a flight from [place] to [place] and should arrive at the hospital approximately 10 AM. Patient is requesting expectant management at this time. I explained to the patient that we will leave membranes intact at this time and attempt to prolong until her can be with her. However if there is any concern with the heart rate tracing that we will need to proceed with delivery. Patient verbalized understanding of this.
[2019-06-30] MEDS: Oxytocin 30 units/NS 500 ml 30 UNITS/500 ML IV.SOLN 334 UNITS IV (11:30)
--- NOTE | 2019-06-30 11:50 | PCM.OPRPT ---
Vaginal Delivery Maternal Presentation: Active Labor Amniotic Membrane Rupture Type: Spontaneous Amniotic Fluid Description: Clear Final ALFREDO: 07/11/19 Final ALFREDO Source: US <20 weeks Gestational age: 38 Weeks and 3 Days Date of Procedure: 06/30/19 Pre-Operative Diagnosis: term gestation, active labor Post-Operative Diagnosis: same, live female Surgery/ Procedure Performed: Spontaneous Vaginal Delivery Type of Anesthesia: Epidural Description of Procedure: of live female infant born without complication. Delayed word clamping performed. Second-degree vaginal and perineal laceration repaired with 2-0 Vicryl. Presentation: Vertex Placental Delivery Description: Spontaneous Placenta Disposition: [facility] Cord Vessel Description: 3 Vessels Cord Entanglement: None Drain: Conley to straight drain Estimated Blood Loss: 250 A gender: Female (1 minute): 9 (5 minute): 9 Episiotomy Description: None Laceration: Perineal Extension/lac, Vaginal Extension/lac, 2nd degree - both repaied with 2-0 vicryl Medications given after delivery: IV Pitocin Complications: None
[2019-06-30] MEDS: Oxytocin 30 units/NS 500 ml 30 UNITS/500 ML IV.SOLN 167 UNITS IV (12:00)
[2019-06-30 17:59] VITALS: BP 147/69; PULSE 89; RESP 17; TEMP 37.2
[2019-06-30] MEDS: Ibuprofen 600 MG Tablet PO (18:13)
[2019-06-30 20:45] VITALS: BP 121/68; PULSE 84; RESP 18; TEMP 36.4
[2019-06-30] MEDS: Acetaminophen 500 MG Tablet 1000 MG PO (23:11)
[2019-07-01 00:15] VITALS: BP 137/73; PULSE 75; RESP 18; TEMP 36.4
[2019-07-01 04:00] VITALS: BP 132/77; PULSE 71; RESP 18; TEMP 36.2
[2019-07-01] MEDS: Ibuprofen 600 MG Tablet PO ×2 (06:54→18:12)
[2019-07-01 08:57] VITALS: BP 138/77; PULSE 80; RESP 18; TEMP 36.6; O2SAT 97
--- NOTE | 2019-07-01 09:28 | PN.OBGYN_ITS ---
Patient Problems: Active and Suspected Problems Advanced maternal age (AMA) in (Acute) Subjective: Patient seen at bedside doing well. Patient reports some pain with her perineal laceration site. She is urinating without difficulty. Bleeding is mild. breast feeding going well. - Physical Exam General: Alert, Oriented x3 Abdomen: Soft, Non Tender, Non-Distended, - - fundus firm Extremities: No Calf Tenderness Neurological: Cranial nerves II-XII grossly intact Comment: Perineum intact no signs of hematoma. 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
[2019-07-01] MEDS: Acetaminophen 500 MG Tablet 1000 MG PO ×2 (09:31→18:12)
[2019-07-01] MEDS: Dibucaine 30 GM Tube 1 APPLIC TOPICAL (09:33)
--- NOTE | 2019-07-01 10:57 | VDLE_ITS ---
Reason For Study: Swelling RIGHT GSV is normal. CFV is compressible, spontaneous, phasic, competent and demonstrates normal augmentation. FV is compressible, spontaneous, phasic, competent and demonstrates normal augmentation. POP V is compressible, spontaneous, phasic, competent and demonstrates normal augmentation. T/P Trunk is compressible. PTV is compressible. RT PerV is compressible. Procedure Exam performed portable in patient room. A preliminary report was called and/or faxed to . Interpretation Summary Deep veins of the right lower extremity are patent and compressible segmentally. There is no evidence of right lower extremity deep vein thrombosis. Valvular competence appears intact within the proximal deep venous system on the right . The right greater saphenous vein appears patent and compressible segmentally. Ordering Physician: Arcelia Tabares Performed By: Isatu Lao RVT
[2019-07-01] MEDS: Senna/Docusate Sodium 1 Tablet PO (11:13)
[2019-07-01 12:13] VITALS: BP 118/73; PULSE 76; RESP 18; TEMP 36.6
--- NOTE | 2019-07-01 12:31 | PCM.PN.BLA ---
Progress Note pt c/o LE swelling right more than left. on exam in morning rounds there was minimal increase in swelling on right leg, tender with dorsiflexion of foot at ankle and calf. there was no erythema or warmth. Will get Right LE doppler to r/o DVT.
[2019-07-01 17:30] VITALS: BP 110/68; PULSE 98; RESP 16; TEMP 36.6
--- NOTE | 2019-07-01 18:19 | NURSING ---
Patient refused fundal check with most recent set of vitals. Educated mother on importance of fundal checks and risk of increased bleeding when not performed. Patient stated that a fundal check could possibly be done later.
[2019-07-01 20:07] VITALS: BP 126/70; PULSE 92; RESP 18; TEMP 36.4; O2SAT 98
[2019-07-02 02:10] VITALS: BP 123/75; PULSE 81; RESP 16; TEMP 36.3; O2SAT 97
[2019-07-02] MEDS: Acetaminophen 500 MG Tablet 1000 MG PO (05:23)
--- NOTE | 2019-07-02 06:50 | NURSING ---
Discussed pain control with pt, pt states pain remains 8/10 after tylenol given. Offered pt motrin or oxyir to control pain, pt denied and stated ice pack was replaced and she will wait to see if pain decreases.
--- NOTE | 2019-07-02 08:29 | PCM.PN.OB ---
Patient Problems: Active and Suspected Problems Advanced maternal age (AMA) in (Acute) Subjective: She is seen at bedside doing well, patient reports mild discomfort in the perineum. Mild lochia, voiding without difficulty. Breast-feeding going well. Patient feeling exhausted reports has not slept since entering the hospital. - Physical Exam General: Alert, Oriented x3 Abdomen: Soft, Non Tender, Non-Distended, - - Fundus firm Extremities: No Calf Tenderness Vital Signs Temp Pulse Resp BP Pulse Ox 97.3 F L 81 16 123/75 H 97 07/02/19 02:10 07/02/19 02:10 07/02/19 02:10 07/02/19 02:10 07/02/19 02:10 Oxygen Delivery Method Room Air Weight: 88.5 kg Body Mass Index (BMI) 33.3 Intake and Output for Last 24 Hours 06/30/19 07/01/19 07/02/19 23:59 23:59 23:59 Intake Total 3136 / 3136 Output Total 2600 / 3200 600 / 600 Balance 536 / -64 -600 / -600 Medical Necessity - Tobacco Use Smoking Status: Never smoker Assessment/Plan All Active Problems Advanced maternal age (AMA) in (Acute) day #2, doing well Routine care DC home Right lower extremity Doppler was negative for DVT-reviewed wearing her compression stockings keeping legs elevated and drinking plenty of water
[2019-07-02 08:30] VITALS: BP 137/83; PULSE 78; RESP 16; TEMP 36.5
--- NOTE | 2019-07-02 08:32 | DCINST_ITS ---
Discharge Diet: No Restrictions Discharge Activity: Return to Normal Activity, May not drive while taking narcotic pain medications., May Shower May resume sexual activity in: 4-6 weeks Additional Activity Instructions:: Nothing in the vagina for 4-6 weeks. You may return to work/school in 6 weeks. Call your doctor if your incision/area has: Continuous Slow Oozing, Sudden Increased Bleeding, Increased Pain/ Swelling, Increased Redness, Foul Smelling Discharge Call your doctor if you observe: Fever of 101 or Higher, Using more than one pad per hour Additional Instructions: If you experience any of the following, contact your healthcare provider. * Bleeding that soaks a pad every hour for 2 hours * Fever 100.4 or higher * Unrelieved incision or abdominal pain * Swelling, redness, discharge or bleeding from your incision or episiotomy site * Your incision begins to separate * Problems urinating (including inability to urinate or burning while urinating). * Visual changes * Severe headache * Flu-like symptoms * Pain or redness in one of both of your breasts * Pain, warmth, tenderness or swelling in your legs, especially the calf area * Frequent nausea and vomiting * Symptoms of depression or anxiety If you experience any of the following, call 911 or go to the nearest Emergency Room. * Chest pain * Problems breathing * Seizure activity * Partial or complete paralysis of a body part, slurred speech, weakness or drooping of the face, or a sudden inability to walk or hold your balance Allergies/Adverse Reactions: Allergies No Known Allergies Allergy (Verified 05/21/19 16:49) Medications to take at Discharge Vit No.130/Iron/Folic [ Tablet] 1 ea PO DAILY 05/21/19 Ibuprofen [Motrin] 600 mg PO Q6H PRN PRN #60 tab 07/02/19 The following prescriptions were given: Ibuprofen [Motrin] 600 mg PO Q6H PRN PRN #60 tab PRN Reason: Mild Pain () Transmission Status: Pending to [facility] Please Follow Up With: Arcelia Tabares MD When: call to make appointment in 1-2 weeks then at 6 weeks post . [phone] Test Results: Test results from this visit will be discussed in further detail at your follow- up appointment, if applicable.
--- NOTE | 2019-07-02 08:32 | PCM.DCVAG ---
Discharge Diet: No Restrictions Discharge Activity: Return to Normal Activity, May not drive while taking narcotic pain medications., May Shower May resume sexual activity in: 4-6 weeks Additional Activity Instructions:: Nothing in the vagina for 4-6 weeks. You may return to work/school in 6 weeks. Call your doctor if your incision/area has: Continuous Slow Oozing, Sudden Increased Bleeding, Increased Pain/ Swelling, Increased Redness, Foul Smelling Discharge Call your doctor if you observe: Fever of 101 or Higher, Using more than one pad per hour Additional Instructions: If you experience any of the following, contact your healthcare provider. Bleeding that soaks a pad every hour for 2 hours Fever 100.4 or higher Unrelieved incision or abdominal pain Swelling, redness, discharge or bleeding from your incision or episiotomy site Your incision begins to separate Problems urinating (including inability to urinate or burning while urinating). Visual changes Severe headache Flu-like symptoms Pain or redness in one of both of your breasts Pain, warmth, tenderness or swelling in your legs, especially the calf area Frequent nausea and vomiting Symptoms of depression or anxiety If you experience any of the following, call 911 or go to the nearest Emergency Room. Chest pain Problems breathing Seizure activity Partial or complete paralysis of a body part, slurred speech, weakness or drooping of the face, or a sudden inability to walk or hold your balance Allergies/Adverse Reactions: Allergies No Known Allergies Allergy (Verified 05/21/19 16:49) Medications to take at Discharge Vit No.130/Iron/Folic [ Tablet] 1 ea PO DAILY 05/21/19 Ibuprofen [Motrin] 600 mg PO Q6H PRN PRN #60 tab 07/02/19 The following prescriptions were given: Ibuprofen [Motrin] 600 mg PO Q6H PRN PRN #60 tab PRN Reason: Mild Pain () Transmission Status: Pending to [facility] Please Follow Up With: Arcelia Tabares MD When: call to make appointment in 1-2 weeks then at 6 weeks post . [phone] Test Results: Test results from this visit will be discussed in further detail at your follow-up appointment, if applicable.
[2019-07-02 12:30] VITALS: BP 136/80; PULSE 85; RESP 16; TEMP 36.9
== END 2019-07-02 14:35 | disposition home or self-care (01) | DRG 807 ==
PROVIDERS: Admitting Provider Obstetrics & Gynecology; Referring Provider Obstetrics & Gynecology; Visit Provider Obstetrics & Gynecology
DX: O42.02 Full-term premature rupture of membranes, onset of labor within 24 hours of rupture (principal); Z37.0 Single live birth; O70.1 Second degree perineal laceration during delivery; O90.89 Other complications of the puerperium, not elsewhere classified; R60.0 Localized edema; Z3A.38 38 weeks gestation of pregnancy
CPT/HCPCS: 59025; 59050; 85025; 86850; 86900; 93971; 99218; J7120; G0378

== ENCOUNTER 2019-10-05 11:58 | Day surgery (SDC) | payer OTHER, SELFPAY ==
--- NOTE | 2019-10-03 20:09 | PCM.HP.BLA ---
History and Physical Date of Admission: 10/05/19 Carson De La Cruz 1980 REFERRING PHYSICIAN: Rohith Hall MD CHIEF COMPLAINT: cholelithiasis HPI: The patient is a 38 year old female who presents with complaint of right upper quadrant abdominal pain. Described as sharp and constant and radiates to the back between the shoulder blades. She is presently . She has had this pain since May of this year. She had epigastric burning pain, also with nausea and emesis. She also notes low grade temperatures, subjective. States that the pain is now constant and in the right upper quadrant of the abdomen. Patient states that during one of her obstetrical ultrasounds, her who is a radiologist at [employer], asked the crime scene technician to visualize the right upper quadrant and he noted gallstones. US 07/23/19 - cholelithiasis She is presently breast feeding. PAST MEDICAL HISTORY ? Fasciitis ? Infertility, female clomid for ? Thyroiditis PAST SURGICAL HISTORY ? NONE Current Outpatient Medications: meloxicam (MOBIC) 15 mg tablet Take 1 tablet by mouth once daily. Take with food. [id number] ( DHA+COMPLETE ) 30-975-300 mg-mcg-mg cmpk Take 1 tablet by mouth once daily. ALLERGIES: Patient has no known allergies. 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 Smoking status: Never Smoker Smokeless tobacco: Never Used Alcohol use: No Drug use: No FAMILY HISTORY ? Hypertension Father ? Lipids Father ? Diabetes Father ? Diabetes Mother REVIEW OF SYSTEMS: General: The patient notes fatigue, denies weight loss, denies weight gain, denies feeling hot, and denies feelings of cold. Eyes: The patient denies glaucoma, denies eye injury/surgery, does not wear glasses or contacts. Ear/Nose/Throat: The patient denies allergies, denies hayfever, denies ear infections, and NOTES bloody noses. Cardiovascular: The patient NOTES chest pain, denies heart disease, denies high blood pressure,denies cardiac stent, denies prior heart attack, denies irregular heart beat, denies high cholesterol, denies poor circulation, denies heart failure, other cardiac issues, denies claudication, denies cold feet, denies peripheral arterial stent. Respiratory: The patient denies tuberculosis, denies pneumonia, denies frequent cough, denies pulmonary embolism, denies shortness of breath, and denies coughing up blood. Gastrointestinal: The patient denies difficulty swallowing, NOTES acid reflux, denies ulcers, NOTES vomiting, denies jaundice/hepatitis, denies gallbladder problems, denies black or tarry stools, denies hemorrhoids, denies bleeding from rectum, denies diverticulitis, denies constipation, denies diarrhea, denies loss of stool control, and denies hernias. Kidney/Bladder: The patient denies kidney stones, denies urine infections, and denies bloody urine. Skin: The patient denies a history of skin cancer, denies bleeding/changing moles, and denies a history of skin rash. Neurologic: The patient denies a history of epilepsy/convulsions, NOTES headaches, denies head/spinal injuries, and denies stroke/TIA. Psychiatric: The patient denies psychiatric medications, denies depression, and denies voices, denies substance abuse. Endocrine: The patient denies thyroid disorders, denies diabetes, and denies hormonal problems. Hematologic: The patient denies a history of bruising, denies bleeding, and denies anemia, denies blood clots. Infections: The patient denies a history of measles and mumps, denies rheumatic fever, and denies sexually transmitted diseases. Musculoskeletal: The patient denies back pain/injury, denies back problems, denies sciatica, denies knee/foot trouble, denies arthritis, or denies gout. PHYSICAL EXAMINATION: General: The patient is 38 year old female, well nourished, well hydrated in no acute distress. The patient is oriented to time, place, and person. VITALS: Blood pressure 104/68, pulse 84, temperature 36.2 ?C (97.2 ?F), height 163 cm (5' 4.17), weight 79.6 kg (175 lb 6.4 oz), SpO2 98 %, currently . Body mass index is 29.95 kg/m?. Head ? Normocephalic. EOM intact with sclera clear and no icterus noted. Mouth with mucus membranes moist. Neck - supple with no jugular venous distention noted. Trachea is midline. No masses noted. Lungs ? clear to auscultation. Normal breath sounds. No rales/rhonchi/wheezing noted. No labored breathing noted, such as retractions. No cough heard. Heart ? normal S1 and S2 auscultated. No rubs/clicks/murmurs noted. Regular rate. Abdomen ? soft and benign. Tender in right upper quadrant and epigastric area with no peritoneal signs noted. Normal bowel sounds. Extremities ? no calf tenderness noted. No pitting edema noted. Rectal ? normal perianal skin, normal sphincter tone, external hermorrhoids, no anal fissure Skin ? normal skin integrity. Neurological ? gait normal, no focal deficit noted Psych ? calm and appropriate IMPRESSION: right upper quadrant and epigastric abdominal pain ? gallstones PLAN: I have discussed the above with the patient. I have offered laparoscopic cholecystectomy, possible cholangiograms I have explained the procedure to the patient. I have counseled the patient as to the risks of the procedure, including but not limited to: infection, bleeding, injury to any blood vessels/nerves, scar tissue, injury to any intrabdominal organs, injury to bowel/bladder, injury to the common bile duct/biliary tree, bile leakage, intraabdominal abscess/bleeding, hernias at incisional sites, wound infections, complications of anesthesia, etc. ? the patient understands. She wishes to proceed. I have answered all questions to the patient?s satisfaction and the patient has no further questions. Return to Clinic: The patient is instructed to follow-up with me after the procedure
[2019-10-05] VITALS (9 sets, daily range): BP systolic 117–133; BP diastolic 70–83; PULSE 72–90; RESP 16–18; TEMP 36.2–36.6; O2SAT 92–99; BMI 29.8
--- NOTE | 2019-10-05 12:17 | EKG12_ITS ---
Test Reason : PRE OP Blood Pressure : / mmHG Vent. Rate : 072 BPM Atrial Rate : 072 BPM P-R Int : 138 ms QRS Dur : 090 ms QT Int : 398 ms P-R-T Axes : 044 052 014 degrees QTc Int : 435 ms Normal sinus rhythm Normal ECG Confirmed by DECLAN BENITES, EMILIO ([id number]), website/blog editor JULI RAO ([id number]) on 10/07/2019 11:28:45 AM Referred By: Lety Crump Confirmed By:EMILIO MANRIQUEZ MD
[2019-10-05 12:49] LABS: Internal QC Validated? YES +Cl - CLEAR BKGD; Pregnancy, Urine Negative Negative
[2019-10-05] MEDS: Lactated Ringers 1,000 ML 75 ML IV ×2 (12:53→16:21)
--- NOTE | 2019-10-05 13:30 | GALL_PTH ---
PATIENT: LEONIE PETERSEN LOC: [facility] [place]#:[id number] AGE/SX: 38/F ROOM: RE10/05/[address]: Dr. Lety Crump MD : 1980 BED: DIS: 10/05/2019 SPEC #: [id number] RECD: 10/05/19 16:00 STATUS: BRIAN AMADO #: [id number] SHIV: 10/05/19 13:[address]: Lety Crump DEPT: SURGICAL PATHOLOGY RECD BY: Kaz Milton ENTERED: 10/06/19 07:39 SP TYPE: ROHIT VALENZUELA DR: MD Ashutosh Randle MD Tissues: Gallbladder, NOS Procedures: Surgery Specimen Level III HEADER OPERATION: Laparoscopic cholecystectomy with IOC PRE-OP DIAGNOSIS: Right upper quadrant and epigastric abdominal pain, gallstones TISSUE SUBMITTED: Gallbladder MICROSCOPIC DIAGNOSIS Gallbladder, cholecystectomy: Cholesterolosis, chronic cholecystitis and cholelithiasis. SJ:edenilson 10/07/19 MICROSCOPIC DESCRIPTION Slides are reviewed. GROSS DESCRIPTION Received is one container labeled with the patient's name and designated gallbladder. The specimen consists of a gallbladder measuring 8 cm in length and up to 2.5 cm in diameter. The external surface is pink-rowland, smooth and glistening for the most part. Focally it is granular, hemorrhagic and contains cautery artifact. The gallbladder contains green-yellow mucoid bile and multiple minute green-brown stones measuring in aggregate 0.5 x 0.1 x 0.1 cm. A slightly larger mulberry greenish stone is also noted measuring 0.6 cm in diameter. The mucosa is bile-stained and without any mass lesions. The gallbladder wall measures up to 0.2 cm in thickness. Air Crew Officer sections from the gallbladder and the cystic duct are submitted in one cassette. / ANUPAMA:edenilson 10/06/19 TC:3 CPT: 99303
--- NOTE | 2019-10-05 13:30 | RAD_ITS ---
STUDY: INTRAOPERATIVE CHOLANGIOGRAM. REASON FOR EXAM: Female, 38 years old. Laparoscopic cholecystectomy. FLUOROSCOPY TIME (if supplied): ( 8.9 seconds ) minutes/seconds. 2 images were obtained. TECHNIQUE: Intraoperative Cholangiogram was performed by the surgeon. Imaging was submitted. COMPARISON: None. FINDINGS: The common bile duct is not dilated. No intraluminal filling defect is seen. There is free flow of contrast into the duodenum. RAD/Cholangiogram/ O R,Initial IMPRESSION: Unremarkable intraoperative cholangiogram. Electronically Signed: Ramón Xiong, at 10:50 EST , Service support ,
[2019-10-05] MEDS: Bupiv/Epi 0.25% 30 ML Vial (13:56)
--- NOTE | 2019-10-05 15:06 | OP.PCM_ITS ---
Report of Operation Date of Procedure: 10/05/19 Pre-Operative Diagnosis: cholelithiasis Post-Operative Diagnosis: cholelithiasis, chronic cholecystitis Surgery/Procedure Performed:: laparoscopic cholecystectomy with cholangiograms Description of Surgical Findings:: normal cholangiograms, chronic cholecystitis with gallstones supervisor poultry farm: Meggan Gomez Type of Anesthesia:: General Anesthesiologist: Guido Snyder Specimen's removed: gallbladder and contents Estimated Blood Loss (mL): < 10 Fluids Replaced: see anesthesia noted Description of Procedure: After informed consent was given, the patient was brought to the Operating Room. Appropraite time out protocol was followed. She was then placed in the supine position. The patient was then placed under general endotracheal anesthesia. The abdomen was then prepped with a sterile surgical skin preparation and sterile surgical drapes were placed. The infraumbilical skin fold was grasped with penetrating clamps and the skin and subcutaneous tissues were infiltrated with 0.25% marcaine mixture with lidocaine with epinephrine. A skin incision was then made with a 15 blade scalpel. The anterior abdominal wall was elevated and a Veress needle was carefully inserted into the intraabdominal cavity. It w as checked to be in the proper position with a normal saline drop test. A CO2 pneumoperitoneum was then created. Once this was achieved, then the Veress needle was removed and an 11mm trocar was placed in its stead. A 10mm laparoscope was then inserted into the trocar and careful attention was directed to the intraabdominal contents. There was no evidence of injury to any intraabdominal organs from insertion of the Veress needle or the trocar. Under direct visualization, a 5mm subxiphoid trocar and two lateral 5mm right subcostal trocars were placed. The skin and subcutaneous tissues at these sites were infiltrated with local anesthetic prior to placement of these trocars. Attention was then directed to the right upper quadrant of the abdomen. Graspers were placed in the lateral trocars to grasp the distal aspect of the gallbladder and direct it cephalad and to grasp the gallbladder at Ayala?s pouch and direct it laterally. Dissection then began on the proximal gallbladder continuing down to the area of the triangle of Calot to bluntly dissect out the cystic duct. The neck of the gallbladder was identified and blunt dissection continued to dissect out a segment of the cystic duct. A clip was then placed on the neck of the gallbladder. A small ductotomy was then made. A Ranfac catheter was brought in through a separate skin incision and placed into the cystic duct. An intraoperative cholangiogram was performed under fluoroscopy. The xray revealed no lesions in the common bile duct, arborization of the biliary tree, and good flow into the duodenum. The Ranfac catheter was then removed and two clips were placed proximal to the ductotomy and the cystic duct was then transected. The cystic artery was visualized and bluntly isolated and then two clips were placed proximally and one clip distally and then it was transected between the proximal and distal clips. The gallbladder was then from the liver bed using electrocautery and thus able to be brought out of the umbilical port. It was then forwarded to pathology for analysis. The liver bed was carefully examined. There was no evidence of bile leakage or bleeding. The cystic duct stump and cystic artery stump had their clips intact and there was no evidence of bile leakage or bleeding. The remainder of the abdomen was grossly normal. The CO2 was released and all trocars removed intact. The periumbilical fascia was approximated with a [id number] 0 vicryl suture. All skin incision were closed with 4-0 monocryl in a subdermal fashion. Cavilol and Steristrips were used to reinforce the skin closure. Sterile dressings were applied to all wounds. The patient was extubated and brought to the Recovery Room in stable condition. - Complications none noted - Admit VTE Documentation VTE Present on Admission: Yes VTE Mechan Device Prophylaxis: SCD's
--- NOTE | 2019-10-05 15:08 | DCINST_ITS ---
Discharge Diet: No Restrictions Discharge Activity: Return to Normal Activity, May not drive while taking narcotic pain medications. Lifting Restrictions: no lifting greater than 20 pounds for two weeks Call your doctor if your incision/area has: Continuous Slow Oozing, Foul Smelling Discharge Call your doctor if you observe: Fever of 101 or Higher Additional Dressing/Incision Instructions:: Leave dresssing in place. May get wet in shower. Do not soak - no tub baths/swimming Additional Instructions: recommended pain medication regimen: can take 600 mg ibuprofen, then in three - four hours can take 650 mg acetaminophen, then in 3-4 hours can take 600 mg ibuprofen, then in 3-4 hours take 650 mg acetaminophen, and so on for 2-3 days Take narcotic pain medications for breakthrough pain and at night Allergies/Adverse Reactions: Allergies No Known Allergies Allergy (Verified 10/01/19 13:23) Medications to take at Discharge Oxycodone [Oxyir] 5 mg PO Q8H PRN PRN 5 Days #15 tab 10/05/19 The following prescriptions were given: Oxycodone [Oxyir] 5 mg PO Q8H PRN PRN 5 Days #15 tab PRN Reason: Pain Score 4-10/10 Prescription Printed Primary Care Physician: Ashutosh Sadler MD [Primary Care Provider] - Test Results: Test results from this visit will be discussed in further detail at your follow- up appointment, if applicable. Please Follow Up With: Lety Crump MD - call When: to be seen in 1-2 weeks, call for time and date, thank you
[2019-10-05] MEDS: HYDROcodone Bitartrate/Apap 5/325 Tablet PO (16:54)
== END 2019-10-05 17:59 | disposition home or self-care (01) ==
LOC: SDC 12:03 → AC 12:04
PROVIDERS: Anesthesiology; Family Provider Family Medicine; PCP Family Medicine; Referring Provider Surgery; Visit Provider Surgery
PROC: (CPT 47610; principal; 2019-10-05 13:15)
DX: K80.10 Calculus of gallbladder with chronic cholecystitis without obstruction (principal); E07.9 Disorder of thyroid, unspecified
CPT/HCPCS: 00790; 47563; 74300; 76000; 81025; 88304; 93005; J7120; J2405

== ENCOUNTER → 2019-10-20 12:53 | Outpatient (CLI) | payer OTHER, SELFPAY ==
[2019-10-05 12:23] VITALS: BMI 29.8
[2019-10-20 13:54] LABS: Absolute Lymphocyte Count 3.21 X10^3/uL (0.83-4.51); Absolute Neutrophil Count 3.6 X10^3/uL (2.0-7.7); Basophil# 0.08 X10^3/uL; Eosinophil# 0.25 X10^3/uL; Eosinophils% 3.3 % (0-5); Hematocrit 43.3 % (37-47); Hemoglobin 13.6 g/dL (12.0-15.0); Lymphocyte # 3.21 X10^3/ul (4.0); Mean Corp Hgb Conc 31.4 g/dL (32-36); Mean Corpuscular Volume 89.1 fL (81-99); Mean Platelet Vol. 10.7 fl (6.2-12.0); Monocyte# 0.44 X10^3/uL; Monocyte% 5.8 % (0-10); NRBC Flagged by Analyzer 0 % (0-5); Neutrophil # 3.64 X10^3/uL (2.7-7.7); Neutrophil % 47.5 % (47-70); Platelet Count 364 K/mm3 (150-450); RBC Distribution Width CV 13.5 % (11.6-14.6); RBC Distribution Width SD 43.8 fl (35.1-43.9); Red Blood Count 4.86 M/mm3 (4.2-5.4); White Blood Count 7.7 K/mm3 (4.4-11.0)
[2019-10-20 14:12] LABS: Iron 72 ug/dL (50-170); Iron Binding Capacity,Total 371 ug/dL (250-450); PERCENT IRON SATURATION 19.4 % (15.0-55.0); Thyroid Stim Hormone (TSH) 2.68 uIU/mL (0.358-3.74)
[2019-10-20 16:47] LABS: T3 Uptake 29 % (30-39); T4 Total, Thyroxin 11.6 ug/dL (4.8-13.9); T7 / Free Thyroxin Index 3.4 (1.4-4.5)
== END ==
PROVIDERS: Family Provider Family Medicine; PCP Family Medicine; Referring Provider Dermatology; Visit Provider Dermatology
DX: L65.0 Telogen effluvium (principal); L21.8 Other seborrheic dermatitis
CPT/HCPCS: 36415; 83540; 83550; 84436; 84439; 84443; 84479; 85025

== ENCOUNTER 2020-08-09 09:20 | Inpatient (IN) | payer OTHER, SELFPAY ==
[2019-10-05 12:23] VITALS: BMI 29.8
[2020-08-09] VITALS (45 sets, daily range): BP systolic 95–137; BP diastolic 52–79; PULSE 74–108; TEMP 36.1–36.9; O2SAT 92–100; BMI 30.9
[2020-08-09 07:55] LABS: Color, Urine Yellow (Yellow); Glucose, Dipstick Normal (Normal); Ketone-Dipstick Negative (Negative); Leukocyte Esterase-Dipstick 500 /ul (Negative); Nitrite-Dipstick Negative (Negative); Occult Blood-Urine Negative /ul (Negative); Protein-Dipstick Negative (Negative); Urine Bilirubin Dipstick Negative (Negative); Urine Clarity Sl. Cloudy (Clear); Urine Urobilinogen Normal (Normal)
[2020-08-09] MEDS: Lactated Ringers 1,000 ML 50 ML IV (09:45)
[2020-08-09] MEDS: Lactated Ringers 500 ML 999 ML IV ×2 (09:45→11:18)
[2020-08-09 11:31] LABS: Absolute Lymphocyte Count 1.76 X10^3/uL (0.83-4.51); Absolute Neutrophil Count 6.9 X10^3/uL (2.0-7.7); Basophil# 0.03 X10^3/uL; Basophil% 0.3 % (0-1); Eosinophil# 0.01 X10^3/uL; Eosinophils% 0.1 % (0-5); Hematocrit 40.1 % (37-47); Hemoglobin 12.9 g/dL (12.0-15.0); Lymphocyte # 1.76 X10^3/ul (4.0); Lymphocyte % 19.2 % (19-41); Mean Corp Hgb Conc 32.2 g/dL (32-36); Mean Corpuscular Hgb 29.2 pg (27.0-32.0); Mean Corpuscular Volume 90.7 fL (81-99); Mean Platelet Vol. 11.5 fl (6.2-12.0); Monocyte# 0.36 X10^3/uL; Monocyte% 3.9 % (0-10); NRBC Flagged by Analyzer 0 % (0-5); Neutrophil # 6.94 X10^3/uL (2.7-7.7); Neutrophil % 75.5 % (47-70); Platelet Count 206 K/mm3 (150-450); RBC Distribution Width CV 14.7 % (11.6-14.6); RBC Distribution Width SD 48.3 fl (35.1-43.9); Red Blood Count 4.42 M/mm3 (4.2-5.4); White Blood Count 9.2 K/mm3 (4.4-11.0)
[2020-08-09] MEDS: fentaNYL-bupivacaine (epidural) 100 ML BAG EPIDURAL ×2 (12:02→19:18)
--- NOTE | 2020-08-09 12:27 | PCM.HP.OB ---
History Date of Admission: 10/05/19 Final ALFREDO: 08/25/20 Final ALFREDO Source: US <20 weeks Gestational age: 37 Weeks and 5 Days History of this : This is a 39 year-old, 2 para 1 at 37-5/7 weeks gestation complaining of contractions since around 1 AM. They got worse in intensity and she arrived to labor and delivery. She was found to be joselyn regularly and had cervical change and was admitted. She denies any vaginal bleeding or leaking of fluid. has been complicated to date by suspected large for gestational age fetus, Tan maternal age. S medical history significant for vitamin D deficiency, hypothyroidism Last ultrasound performed on 07/18/2020 in our office revealed single intrauterine gestation in the vertex presentation with an estimated weight of 3281 g, which was greater than 99th percentile. Allergies No Known Allergies Allergy (Verified 08/09/20 07:20) Home Medications: Home Medications Vits [Prenatabs FA ] 1 tab PO DAILY 08/09/20 Smoking Status: Never smoker Alcohol: None Number of Fetus(es): 1 History Past Pregnancies: Past Pregnancies Delivery Date Name GA/ Weeks Outcome Route Wt Sex Labor Length Anesthesia Delivery Location Provider FOB Expected Delivery Method: Spontaneous Vaginal Review of Systems Constitutional: Denies: Chills, Fever Eyes: Denies: Blurred vision Cardiovascular: Denies: Chest Pain Respiratory: Denies: Cough Gastrointestinal: Denies: Diarrhea Neurological: Denies: Double vision, Change in Speech, Slurred speech Hematologic/ Lymphatic: Denies: Anemia Physical Exam Vitals: Vital Signs Temp Pulse BP Pulse Ox 97.4 F L 85 118/70 92 08/09/20 07:23 08/09/20 12:25 08/09/20 12:25 08/09/20 12:25 General: Alert, Cooperative, No apparent distress Cardiovascular: Regular rate Lungs: Normal air movement Abdomen: Soft, Non Tender, Non-Distended, Gravid, Appropriate for Gestational Age Extremities:: Other - edema 1+ Neurological: Neuro grossly intact EFFICIENCY MANAGER: Normal external genitalia Estimated gestational size: Appropriate for gestational size Presentation: Cephalic Assessment/Plan All Active Problems Advanced maternal age (AMA) in (Acute) This is a 39 year-old, 2 para 1 at 37-5/7 weeks gestation in spontaneous labor. Estimated weight based on previous ultrasounds and clinical assessment is likely around thousand grams. Pelvis clinically adequate to expect vaginal delivery. May have epidural as needed for pain control. His is traveling from out of town, will not augment labor at this point. The strep prophylaxis is initiated.
[2020-08-09] MEDS: Lactated Ringers 1,000 ML 200 ML IV (17:07)
--- NOTE | 2020-08-09 20:44 | PN.OBGYN_ITS ---
Subjective: Comfortable with epidural. arriving from [place], [place]. Objective: FHR:135, moderate variability TOCO: Every 3 minutes, strong cervix: complete, +2 station - Physical Exam Vitals/I&O's: Vital Signs Temp Pulse BP Pulse Ox 97.5 F L 107 H 127/78 H 100 08/09/20 20:25 08/09/20 20:27 08/09/20 20:27 08/09/20 20:25 Weight: 186 lb Body Mass Index (BMI) 30.9 Intake and Output for Last 24 Hours 08/07/20 08/08/20 08/09/20 23:59 23:59 23:59 Intake Total 2705.00 / 2705.00 Output Total 1999 Balance 705.00 / 705.00 Laboratory Results 08/09/20 07:35: Urine Color Yellow, Urine Clarity Sl. Cloudy, Urine pH 6.0, Ur Specific Kimmell 1.010, Urine Protein Negative, Urine Glucose (UA) Normal, Urine Ketones Negative, Urine Occult Blood Negative, Urine Nitrite Negative, Urine Bilirubin Negative, Urine Urobilinogen Normal, Ur Leukocyte Esterase 500 H 08/09/20 10:05: WBC Cancelled, Corrected WBC Cancelled, RBC Cancelled, Hgb Cancelled, Hct Cancelled, MCV Cancelled, MCH Cancelled, MCHC Cancelled, RDW Std Deviation Cancelled, RDW Coeff of Jennifer Cancelled, Plt Count Cancelled, MPV Cancelled, Immature Gran % (Auto) Cancelled, Neut % (Auto) Cancelled, Lymph % (Auto) Cancelled, Ray % (Auto) Cancelled, Eos % (Auto) Cancelled, Baso % (Auto) Cancelled, Absolute Neuts (auto) Cancelled, Absolute Lymphs (auto) Cancelled, Total Counted Cancelled, Neutrophils % (Manual) Cancelled, Band Neutrophils % Cancelled, Lymphocytes % (Manual) Cancelled, Monocytes % (Manual) Cancelled, Eosinophils % (Manual) Cancelled, Basophils % (Manual) Cancelled, Metamyelocytes % Cancelled, Myelocytes % Cancelled, Promyelocytes % Cancelled, Blast Cells % Cancelled, Plasma Cell % (Manual) Cancelled, Other Cells % Cancelled, Nucleated RBC % Cancelled, Nucleated RBCs/100 WBC Cancelled, Differential Comment Cancelled, Diff Path Review Cancelled, Hypersegmented Neuts Cancelled, Atypical Lymphocytes Cancelled, Reactive Lymphocytes Cancelled, Smudge Cells Cancelled, Toxic Granulation Cancelled, Toxic Vacuolation Cancelled, Dohle Bodies Cancelled, Mayda Rods Cancelled, Platelet Estimate Cancelled, Plt Morphology Comment Cancelled, RBC Morphology Cancelled, Polychromasia Cancelled, Hypochromasia Cancelled, Poikilocytosis Cancelled, Basophilic Stippling Cancelled, Anisocytosis Cancelled, Microcytosis Cancelled, Macrocytosis Cancelled, Spherocytes Cancelled, Sickle Cells Cancelled, Target Cells Cancelled, Tear Drop Cells Cancelled, Ovalocytes Cancelled, Stomatocytes Cance lled, Crow-Smackover Bodies Cancelled, Tularosa Cells Cancelled, Bite Cells Cancelled, Crenated Cell Cancelled, Acanthocytes (Spur) Cancelled, Rouleaux Cancelled, Schistocytes Cancelled 08/09/20 10:05: Blood Type A POSITIVE, Antibody Screen NEGATIVE 08/09/20 11:10: WBC 9.2, RBC 4.42, Hgb 12.9, Hct 40.1, MCV 90.7, MCH 29.2, MCHC 32.2, RDW Std Deviation 48.3 H, RDW Coeff of Jennifer 14.7 H, Plt Count 206, MPV 11.5, Immature Gran % (Auto) 1.000 H, Neut % (Auto) 75.5 H, Lymph % (Auto) 19.2, Ray % (Auto) 3.9, Eos % (Auto) 0.1, Baso % (Auto) 0.3, Absolute Neuts (auto) 6.9, Absolute Lymphs (auto) 1.76, Nucleated RBC % 0 Current Medications Acetaminophen (Tylenol) 325 - 650 mg PO Q4H PRN PRN PRN Reason: Pain Score 1-3/10 Al Hydroxide/Mg Hydroxide (Mylanta Ii) 15 - 30 ml PO Q4H PRN PRN PRN Reason: INDIGESTION Citric Acid/Sodium Citrate (Bicitra) 30 ml PO X1 PRN PRN Reason: Section Ephedrine Sulfate () 10 mg IV Q10M PRN PRN Reason: hypotension Ephedrine Sulfate () 10 mg IM Q30M PRN PRN Reason: hypotension Fentanyl Citrate (Sublimaze (100mcg Ampule)) 25 - 50 mcg IV Q2H PRN PRN PRN Reason: Pain Score 4-10/10 Fentanyl/Bupivacaine/Sodium Chlor () 0 ml EPIDURAL UD MELISSA; Protocol Last Admin: 08/09/20 19:18 Dose: 100 ml Documented by: Lactated Ringer's () 500 mls @ 999 mls/hr IV .Q31M PRN PRN Reason: Epidural Last Infusion: 08/09/20 11:49 Dose: Infused Documented by: Lactated Ringer's () 500 mls @ 999 mls/hr IV .Q31M PRN PRN Reason: Corrective Measures Lactated Ringer's () 1,000 mls @ 50 mls/hr IV .Q20H [facility] Last Admin: 08/09/20 17:07 Dose: 200 mls/hr Documented by: Penicillin G Potassium/Dextrose (Penicillin G Potassium) 3 mu in 50 mls @ 100 mls/hr IV Q4H [facility] Last Infusion: 08/09/20 19:00 Dose: Infused Documented by: Naloxone HCl 4 mg/ Dextrose 504 mls @ 0 mls/hr IV .Q0M PRN; Protocol PRN Reason: To maintain Resp. rate >10 Naloxone HCl (Narcan) 0.02 mg IV Q1M PRN PRN Reason: RR< 10 AND PT UNRESPONSIVE Ondansetron HCl (Zofran) 4 mg IV Q4H PRN PRN PRN Reason: NAUSEA Prochlorperazine Edisylate (Compazine Iv) 10 mg IV Q6H PRN PRN PRN Reason: NAUSEA Sodium Chloride () 10 - 40 ml IV X1 PRN PRN Reason: SALINE FLUSH Medical Necessity - Tobacco Use Smoking Status: Never smoker Assessment/Plan All Active Problems Advanced maternal age (AMA) in (Acute) A:Active Labor, second stage P: 1) Patient with pelvic pressure and complete station +2. Awaiting arrival in 15 minutes per patient request. Patient states, I will not push till he is here. Baby and patient stable. Anticipate vaginal delivery soon. 2) notified of patient status.
[2020-08-09] MEDS: Oxytocin 30 units/NS 500 ml 30 UNITS/500 ML IV.SOLN 334 UNITS IV (21:44)
--- NOTE | 2020-08-09 22:07 | PCM.OPRPT ---
Problem List (1) Vaginal delivery Status: Acute (2) Second degree perineal laceration Status: Acute Vaginal Delivery Maternal Presentation: Active Labor Amniotic Membrane Rupture Type: Artificial Amniotic Fluid Description: Clear, Cloudy Final ALFREDO Source: US <20 weeks Date of Procedure: 08/09/20 Pre-Operative Diagnosis: active labor Post-Operative Diagnosis: Surgery/ Procedure Performed: Spontaneous Vaginal Delivery Type of Anesthesia: Epidural Description of Procedure: Progressed to complete. of viable male over 2nd degree perineal laceration. APGARS 8, 9. Epidural analgesia for pain management. Infant head delivered with body forthcoming. Placed on maternal abdomen, strong cry. Mouth and nares suctioned for secretions. Pitocin started for active 3rd stage management. Cord clamped and cut by father of baby. Placenta delivered spontaneous intact with 3 vessel cord via ck. Perineum inspected and revealed 2nd degree perineal laceration. Repaired with 3.0 vicryl rapide under epidural analgesia. Well approximated and hemostasis achieved. fundus firm. Vaginal sweep completed by me. EBL 450ml. Sponge and instrument count correct. Planning to breastfeed. Mom and baby stable. Family bonding well. notified of delivery. Presentation: Vertex Placental Delivery Description: Spontaneous Placenta Disposition: [facility] Cord Vessel Description: 3 Vessels Cord Entanglement: None Estimated Blood Loss: 450ml Infant A gender: Male (1 minute): 9 (5 minute): 10 Episiotomy Description: None Laceration: Perineal Extension/lac, 2nd degree Medications given after delivery: IV Pitocin Complications: None
[2020-08-09] MEDS: Ibuprofen 600 MG Tablet PO (22:54)
[2020-08-10 00:04] VITALS: BP 111/67; PULSE 82; TEMP 36.2
[2020-08-10] MEDS: 0.9% Saline Lock 10 ML Syringe IV (00:14)
[2020-08-10 03:40] VITALS: BP 111/63; PULSE 73; RESP 16; TEMP 36.3
[2020-08-10] MEDS: Acetaminophen 500 MG Tablet 1000 MG PO ×2 (03:42→12:13)
[2020-08-10 06:10] LABS: Hematocrit 36.7 % (37-47); Hemoglobin 12.2 g/dL (12.0-15.0); Mean Corp Hgb Conc 33.2 g/dL (32-36); Mean Corpuscular Hgb 29.8 pg (27.0-32.0); Mean Corpuscular Volume 89.5 fL (81-99); Mean Platelet Vol. 11.5 fl (6.2-12.0); Platelet Count 198 K/mm3 (150-450); RBC Distribution Width CV 14.5 % (11.6-14.6); RBC Distribution Width SD 47.2 fl (35.1-43.9); White Blood Count 11.9 K/mm3 (4.4-11.0)
[2020-08-10 07:32] VITALS: BP 105/73; PULSE 75; RESP 16; TEMP 36.6; O2SAT 99
--- NOTE | 2020-08-10 08:30 | PCM.PN.OB ---
Patient Problems: Active and Suspected Problems Vaginal delivery (Acute) Second degree perineal laceration (Acute) Subjective: Doing well per patient and nursing staff. Ambulating and taking PO. Increased cramping, taking Tylenol and Motrin. Denies any heavy bleeding or clots. Declines LARC. Planning D/C home tomorrow. Baby in SCN, pumping breastmilk. - Physical Exam Vitals/I&O's: Vital Signs Temp Pulse Resp BP Pulse Ox 98.2 F 78 16 110/74 99 08/11/20 08:51 08/11/20 08:51 08/11/20 08:51 08/11/20 08:51 08/10/20 16:21 Oxygen Delivery Method Room Air Weight: 186 lb Body Mass Index (BMI) 30.9 Intake and Output for Last 24 Hours 08/09/20 08/10/20 08/11/20 23:59 23:59 23:59 Intake Total 3795.33 / 3795.33 333 / 333 Output Total 2300 / 2300 1600 / 1600 Balance 1495.33 / 1495.33 -1267 / -1267 General: Alert, Oriented x3, Cooperative HEENT: Atraumatic, Normocephalic Neck: Trachea Midline Lungs: Normal air movement Cardiovascular: Regular rate, Regular Rhythm Abdomen: Bowel Sounds Present, Soft - Fundus firm 2 below U Extremities: No edema Psych/Mental Status: Normal Affect, Appropriate Current Medications Acetaminophen (Tylenol) 1,000 mg PO Q8H PRN PRN PRN Reason: Pain Score 1-3 Last Admin: 08/10/20 12:13 Dose: 1,000 mg Documented by: Bisacodyl (Dulcolax) 10 mg RECTAL UD PRN PRN Reason: If no BM Dibucaine (Dibucaine) 1 applic TOPICAL TID PRN PRN; Protocol PRN Reason: Discomfort Hydrocortisone (Hytone) 1 applic TOPICAL TID PRN PRN; Protocol PRN Reason: Discomfort Ibuprofen (Motrin) 600 mg PO Q6H PRN PRN PRN Reason: Pain Score 1-310 Last Admin: 08/11/20 03:42 Dose: 600 mg Documented by: Methylergonovine Maleate (Methergine) 0.2 mg IM X1 PRN PRN Reason: Excess bleeding/uterine atony Ondansetron HCl (Zofran) 4 mg IV Q4H PRN PRN PRN Reason: Nausea Oxycodone HCl (Oxyir) 5 mg PO Q4H PRN PRN PRN Reason: Pain Score 4-10/10 Last Admin: 08/11/20 10:29 Dose: 5 mg Documented by: Senna/Docusate Sodium (Senokot-S, Lien-Colace) 1 - 2 tablet PO DAILY PRN PRN PRN Reason: Constipation Last Admin: 08/11/20 10:31 Dose: 1 tablet Documented by: Simethicone (Mylicon) 80 mg PO PCHS PRN PRN Reason: Indigestion/Stomach pain Sodium Chloride () 5 - 15 ml IV UD PRN PRN Reason: SALINE FLUSH Last Admin: 08/10/20 00:14 Dose: 10 ml Documented by: Medical Necessity - Tobacco Use Smoking Status: Never smoker Assessment/Plan All Active Problems Advanced maternal age (AMA) in (Acute) Vaginal delivery (Acute) Second degree perineal laceration (Acute) A:PPD #1 P: 1) Routine care 2) Pain management 3) Hgb stable 4) D/C home tomorrow.
[2020-08-10] MEDS: Ibuprofen 600 MG Tablet PO ×2 (09:12→16:30)
[2020-08-10] MEDS: oxyCODONE 5 MG Tablet PO ×3 (11:06→23:40)
[2020-08-10 11:20] VITALS: BP 112/73; PULSE 85; RESP 16; TEMP 36.1; O2SAT 99
[2020-08-10 16:21] VITALS: BP 112/74; PULSE 69; RESP 16; TEMP 37; O2SAT 99
[2020-08-10] MEDS: Senna/Docusate Sodium 1 Tablet PO (18:30)
[2020-08-10 19:55] VITALS: BP 116/72; PULSE 81; RESP 16; TEMP 36.3
[2020-08-11 01:00] VITALS: BP 96/59; PULSE 83; RESP 16; TEMP 36.2
[2020-08-11] MEDS: Ibuprofen 600 MG Tablet PO (03:42)
--- NOTE | 2020-08-11 08:28 | PCM.PN.OB ---
Patient Problems: Active and Suspected Problems Vaginal delivery (Acute) Second degree perineal laceration (Acute) Subjective: Patient seen at bedside. Stated feeling well but still sore. Keeping ice to bottom and taking Oxy for pain relief because Motrin is too upsetting to stomach. Pumping every 3 hours and feeding over in SCN. Stated baby is doing much better and may be discharged tonight. Patient requesting discharge home. Lochia decreased. Ambulating and voiding without difficulty. - Physical Exam Vitals/I&O's: Vital Signs Temp Pulse Resp BP Pulse Ox 97.2 F L 83 16 96/59 L 99 08/11/20 01:00 08/11/20 01:00 08/11/20 01:00 08/11/20 01:00 08/10/20 16:21 Oxygen Delivery Method Room Air Weight: 186 lb Body Mass Index (BMI) 30.9 Intake and Output for Last 24 Hours 08/09/20 08/10/20 08/11/20 23:59 23:59 23:59 Intake Total 3795.33 / 3795.33 333 / 333 Output Total 2300 / 2300 1600 / 1600 Balance 1495.33 / 1495.33 -1267 / -1267 General: Alert, Oriented x3 HEENT: Atraumatic Oral: Moist Mucosa Lungs: Normal air movement Cardiovascular: Regular rate Abdomen: Soft, Non Tender, Non-Distended Skin: No rashes Musculoskeletal: No Tenderness to Palpation of Joints or Extremities Neurological: Cranial nerves II-XII grossly intact Psych/Mental Status: Normal Affect Current Medications Acetaminophen (Tylenol) 1,000 mg PO Q8H PRN PRN PRN Reason: Pain Score 1-3 Last Admin: 08/10/20 12:13 Dose: 1,000 mg Documented by: Bisacodyl (Dulcolax) 10 mg RECTAL UD PRN PRN Reason: If no BM Dibucaine (Dibucaine) 1 applic TOPICAL TID PRN PRN; Protocol PRN Reason: Discomfort Hydrocortisone (Hytone) 1 applic TOPICAL TID PRN PRN; Protocol PRN Reason: Discomfort Ibuprofen (Motrin) 600 mg PO Q6H PRN PRN PRN Reason: Pain Score 1-310 Last Admin: 08/11/20 03:42 Dose: 600 mg Documented by: Methylergonovine Maleate (Methergine) 0.2 mg IM X1 PRN PRN Reason: Excess bleeding/uterine atony Ondansetron HCl (Zofran) 4 mg IV Q4H PRN PRN PRN Reason: Nausea Oxycodone HCl (Oxyir) 5 mg PO Q4H PRN PRN PRN Reason: Pain Score 4-10/10 Last Admin: 08/10/20 23:40 Dose: 5 mg Documented by: Senna/Docusate Sodium (Senokot-S, Lien-Colace) 1 - 2 tablet PO DAILY PRN PRN PRN Reason: Constipation Last Admin: 08/10/20 18:30 Dose: 1 tablet Documented by: Simethicone (Mylicon) 80 mg PO PCHS PRN PRN Reason: Indigestion/Stomach pain Sodium Chloride () 5 - 15 ml IV UD PRN PRN Reason: SALINE FLUSH Last Admin: 08/10/20 00:14 Dose: 10 ml Documented by: Medical Necessity - Tobacco Use Smoking Status: Never smoker Assessment/Plan All Active Problems Advanced maternal age (AMA) in (Acute) Vaginal delivery (Acute) Second degree perineal laceration (Acute) A/P PPD #2 with 2nd degree laceration Routine care Pain control Discharge home today
--- NOTE | 2020-08-11 08:39 | DCINST_ITS ---
Discharge Diet: No Restrictions Additional Instructions: If you experience any of the following, contact your healthcare provider. * Bleeding that soaks a pad every hour for 2 hours * Fever 100.4 or higher * Unrelieved incision or abdominal pain * Swelling, redness, discharge or bleeding from your incision or episi otomy site * Your incision begins to separate * Problems urinating (including inability to urinate or burning while urinating). * Visual changes * Severe headache * Flu-like symptoms * Pain or redness in one of both of your breasts * Pain, warmth, tenderness or swelling in your legs, especially the calf area * Frequent nausea and vomiting * Symptoms of depression or anxiety If you experience any of the following, call 911 or go to the nearest Emergency Room. * Chest pain * Problems breathing * Seizure activity * Partial or complete paralysis of a body part, slurred speech, weakness or drooping of the face, or a sudden inability to walk or hold your balance Allergies/Adverse Reactions: Allergies No Known Allergies Allergy (Verified 08/09/20 07:20) Medications to take at Discharge Vits [Prenatabs FA ] 1 tab PO DAILY 08/09/20 Oxycodone [Oxyir] 5 mg PO Q4H PRN PRN 3 Days #10 tablet 08/11/20 The following prescriptions were given: Oxycodone [Oxyir] 5 mg PO Q4H PRN PRN 3 Days #10 tablet PRN Reason: Pain Score 4-10/10 Transmission Status: Sent to [facility] Please Follow Up With: Cuca Cruz MD Primary Care Physician: Ashutosh Sadler MD [Primary Care Provider] - Test Results: Test results from this visit will be discussed in further detail at your follow- up appointment, if applicable. Proposed Discharge Date: 08/11/20
--- NOTE | 2020-08-11 08:39 | PCM.DCVAG ---
Discharge Diet: No Restrictions Additional Instructions: If you experience any of the following, contact your healthcare provider. Bleeding that soaks a pad every hour for 2 hours Fever 100.4 or higher Unrelieved incision or abdominal pain Swelling, redness, discharge or bleeding from your incision or episiotomy site Your incision begins to separate Problems urinating (including inability to urinate or burning while urinating). Visual changes Severe headache Flu-like symptoms Pain or redness in one of both of your breasts Pain, warmth, tenderness or swelling in your legs, especially the calf area Frequent nausea and vomiting Symptoms of depression or anxiety If you experience any of the following, call 911 or go to the nearest Emergency Room. Chest pain Problems breathing Seizure activity Partial or complete paralysis of a body part, slurred speech, weakness or drooping of the face, or a sudden inability to walk or hold your balance Allergies/Adverse Reactions: Allergies No Known Allergies Allergy (Verified 08/09/20 07:20) Medications to take at Discharge Vits [Prenatabs FA ] 1 tab PO DAILY 08/09/20 Oxycodone [Oxyir] 5 mg PO Q4H PRN PRN 3 Days #10 tablet 08/11/20 The following prescriptions were given: Oxycodone [Oxyir] 5 mg PO Q4H PRN PRN 3 Days #10 tablet PRN Reason: Pain Score 4-10/10 Transmission Status: Sent to [facility] Please Follow Up With: Cuca Cruz MD Primary Care Physician: Ashutosh Sadler MD [Primary Care Provider] - Test Results: Test results from this visit will be discussed in further detail at your follow-up appointment, if applicable. Proposed Discharge Date: 08/11/20
[2020-08-11 08:51] VITALS: BP 110/74; PULSE 78; RESP 16; TEMP 36.8
[2020-08-11] MEDS: oxyCODONE 5 MG Tablet PO ×2 (10:29→14:50)
[2020-08-11] MEDS: Senna/Docusate Sodium 1 Tablet PO (10:31)
[2020-08-11 13:30] VITALS: BP 112/72; PULSE 87; RESP 18; TEMP 36.9
== END 2020-08-11 16:40 | disposition home or self-care (01) | DRG 807 ==
LOC: WPOUT 10:36 → WP 10:36
PROVIDERS: Obstetrics & Gynecology; Admitting Provider Advanced Practice Midwife; PCP Family Medicine; Referring Provider Advanced Practice Midwife; Visit Provider Advanced Practice Midwife
DX: O36.63X0 Maternal care for excessive fetal growth, third trimester, not applicable or unspecified (principal); Z37.0 Single live birth; O70.1 Second degree perineal laceration during delivery; Z3A.37 37 weeks gestation of pregnancy
CPT/HCPCS: 59025; 59050; 81002; 85025; 85027; 86850; 86900; 86901; 99218; J7120; A4216; G0378

== ENCOUNTER → 2021-03-16 09:51 | Outpatient (CLI) | payer OTHER, SELFPAY ==
[2021-03-15 13:50] VITALS: BMI 28.4
--- NOTE | 2021-03-16 09:53 | ECHOD_ITS ---
Reason For Study: ARRHYTHMIA Procedure This was a 2D Doppler, Color Flow transthoracic echocardiogram. Exam performed in department. Left Ventricle Normal LV size. Left ventricular systolic function is normal. The estimated ejection fraction is 65 %. No regional wall motion abnormalities noted. Right Ventricle Normal RV size. Normal systolic function. Atria Normal left atrium. Normal right atrium. Mitral Valve Normal mitral valve. Tricuspid Valve Normal tricuspid valve. Mild (1+) tricuspid valve insufficiency. Pulmonary artery systolic pressure is 20 mmHg. Aortic Valve Normal aortic valve. Trisinus/trileaflet aortic valve. Pulmonic Valve Normal pulmonic valve. Great Vessels Normal aortic root. The pulmonary artery is normal size. Normal inferior vena cava. Pericardium/Pleural No pericardial effusion. MMode/2D Measurements & Calculations LVIDd: 4.0 cm IVSd: 0.84 cm Ao root diam: 2.7 cm LVIDs: 2.7 cm LVPWd: 0.83 cm RVDd: 3.2 cm FS: 33.0 % LAV(MOD-bp): 30.5 ml LVAd ap4: 25.6 cm2 SV(MOD-sp4): 39.1 ml LAV(MOD-bp) Indexed: 16.5 ml/m2 EDV(MOD-sp4): 64.8 ml LAV(MOD-sp2): 28.0 ml EDV(sp4-el): 67.2 ml LAV(MOD-sp4): 31.1 ml LVAs ap4: 13.7 cm2 ESV(MOD-sp4): 25.8 ml ESV(sp4-el): 24.5 ml EF(MOD-sp4): 60.3 % EF(sp4-el): 63.5 % SV(sp4-el): 42.7 ml LA A4 area: 14.3 cm2 LA dimension(2D): 3.2 cm RA A4 area: 14.7 cm2 Time Measurements MV dec time: 0.19 sec Doppler Measurements & Calculations MV E max mervin: 74.3 cm/sec Lat Peak E' Mervin: 18.1 cm/sec Med Peak E' Mervin: 10.7 cm/sec MV A max mervin: 57.5 cm/sec E/E' lat: 4.1 E/E' med: 7.0 MV E/A: 1.3 Ao V2 max: 129.8 cm/sec LV V1 max: 117.0 cm/sec PA V2 max: 98.6 cm/sec Ao max P.7 mmHg LV V1 max P.5 mmHg TR max mervin: 199.9 cm/sec TR max P.0 mmHg ECHO/Echo Complete Interpretation Summary Normal LV size. Left ventricular systolic function is normal. The estimated ejection fraction is 65 %. Structurally normal valves. Ordering Physician: Braeden Hannah Referring Physician: JOSUE ARENAS Performed By: Alethea Birmingham RDCS
== END ==
PROVIDERS: PCP Family Medicine; Visit Provider Internal Medicine Cardiovascular Disease
DX: R00.2 Palpitations (principal)
CPT/HCPCS: 93306